=== PATIENT | female | born 1985 | race Caucasian/White ===

== ENCOUNTER 2016-11-20 14:22 | Emergency (ER) | payer OTHER ==
[~2016-11-20] VITALS: Ht 170.2 cm; Wt 70.6 kg
[~2016-11-20 14:22] MED LIST: CLON1TAB3 PO; METR0.754 PV; VALA1TAB31 PO; VILA1TAB PO
[2016-11-20 14:30] VITALS: TEMP 36.7; Ht 170.2 cm; Wt 70.6 kg
[2016-11-20] MEDS ORDERED: LORAZEPAM 2 MG/ML 1 ML VIAL IV STA (15:42)
[2016-11-20] MEDS ORDERED: ONDANSETRON INJ 2 MG/ML 2 ML VIAL IV STA (15:42)
[2016-11-20] MEDS ORDERED: SODIUM CHLORIDE 0.9% 1000ML 1,000 ML IV STA (15:42)
[2016-11-20] MEDS ORDERED: KETOROLAC TROMETHAMINE 30 MG/ML VIAL IV STA (15:42)
[2016-11-20] MEDS ORDERED: SULF800T23 PO (15:58)
[2016-11-20 16:14] LABS: BASO % 0.4 %; BASO ABS # 0.01 K/uL (0-0.2); COMPLETE YES; EOS % 3.2 %; LYMPH % 31.4 %; LYMPH ABS # 0.88 K/uL (1.2-3.4); MEAN CORPUSCULAR HGB CONC 33.7 g/dl (32-36); MEAN PLATELET VOLUME 9.7 fL (7.4-10.4); MONO % 10.4 %; NEUT % 54.6 %; PLATELET COUNT 225 K/uL (130-400); RED BLOOD COUNT 4.42 M/uL (4.2-5.4)
[2016-11-20 16:21] LABS: URINE APPEARANCE TURBID (CLEAR); URINE COLOR ORANGE; URINE EPITHELIAL CELL AUTO >30 /lpf (0-5); URINE NITRITE NEG (NEG); URINE PH >= 9.0 (4.5-7.5); URINE SPECIFIC GRAVITY 1.028 (1.000-1.030); UROBILINOGEN NEG (NEG); ZZUR CULT IF INDIC CLEAN CATCH YES
[2016-11-20 16:32] LABS: MANUAL MICROSCOPIC REQUIRED? NO; REVIEW REQ? YES; SULFASALICYLIC ACID POS (NEG); URINE BILIRUBIN 1+ (NEG)
[2016-11-20 16:42] LABS: BUN/CREATININE RATIO 8.1 (10-20); CREATININE 1.2 mg/dl (0.60-1.20); POTASSIUM 3.4 mmol/L (3.5-5.1)
[2016-11-20 16:50] LABS: PREG INTERNAL NEGATIVE QC NEG CLEAR BACKGROUND; PREG INTERNAL POSITIVE QC POS CONTROL LINE
[2016-11-20] MEDS ORDERED: OPTIRAY 320 IV PRN (18:00)
--- NOTE | 2016-11-20 19:41 | DIAGNOSTIC IMAGING REPORT ---
CT OF THE ABDOMEN AND PELVIS WITH CONTRAST CLINICAL HISTORY: Lower abdominal pain, nausea, vomiting and diarrhea. COMPARISON STUDY: CT of the abdomen and pelvis December 27, 2015. TECHNIQUE: Following IV administration of 118 mL of Optiray-320, axial images of the abdomen and pelvis were obtained from the lung bases to the proximal femurs. Images were reviewed in the axial, sagittal, and coronal planes. IV contrast was administered without complication. Oral contrast was administered. CT DOSE: 466.18 mGycm FINDINGS: Lung bases are clear. The liver, spleen, adrenal glands, kidneys and pancreas are normal. There is no hydronephrosis. There is no biliary or pancreatic ductal dilatation. The appendix is normal. An intrauterine device is appropriately positioned. The ovaries are not enlarged. Caliber and wall thickness of small and large bowel are normal. IMPRESSION: 1. No acute process within the abdomen or pelvis. Normal appendix. 2. Appropriately positioned intrauterine device. Electronically signed by: Hudson Castelan M.D. 11/20/2016 7:40 PM Dictated Date/Time: 11/20/2016 7:37 PM
[2016-11-20] MEDS ORDERED: CIPROFLOXACIN 500 MG TAB PO STA (19:52)
[2016-11-20] MEDS ORDERED: ONDANSETRON HOME PACK 4MG OD TAB PO ONE (20:00)
[2016-11-20] MEDS ORDERED: ONDA4TAB10 SL (20:01)
[2016-11-20] MEDS ORDERED: CIPR1TAB10 PO (20:01)
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
[2016-11-20 20:10] VITALS: BP 107/75; PULSE 85; O2SAT 97
== END 2016-11-20 20:14 | disposition home or self-care (01) ==
LOC: C.EDB 14:24
DX: N39.0 Urinary tract infection, site not specified (principal); R10.30 Lower abdominal pain, unspecified; R11.10 Vomiting, unspecified; R19.7 Diarrhea, unspecified; Z87.891 Personal history of nicotine dependence

== ENCOUNTER 2017-01-22 15:50 | Emergency (ER) | payer OTHER ==
[~2017-01-22] VITALS: Ht 170.2 cm; Wt 70.5 kg
[~2017-01-22 15:50] MED LIST changes: -METR0.754 PV; +ONDA4TAB10 SL; +SULF800T23 PO
[2017-01-22 15:55] VITALS: TEMP 36.7; Ht 170.2 cm; Wt 70.5 kg
[2017-01-22 17:54] LABS: URINE APPEARANCE CLEAR (CLEAR); URINE BILIRUBIN NEG (NEG); URINE COLOR YELLOW; URINE EPITHELIAL CELL AUTO >30 /lpf (0-5); URINE NITRITE NEG (NEG); URINE PH 6.5 (4.5-7.5); URINE SPECIFIC GRAVITY 1.019 (1.000-1.030); UROBILINOGEN NEG (NEG); ZZUR CULT IF INDIC CLEAN CATCH NO
[2017-01-22 17:55] LABS: MANUAL MICROSCOPIC REQUIRED? NO; REVIEW REQ? NO
[2017-01-22 18:08] LABS: BASO % 0.3 %; BASO ABS # 0.01 K/uL (0-0.2); COMPLETE YES; EOS % 1.9 %; HEMATOCRIT 38.4 % (37-47); LYMPH % 26.5 %; LYMPH ABS # 0.95 K/uL (1.2-3.4); MEAN CELL VOLUME 91.2 fL (80-100); MEAN CORPUSCULAR HEMOGLOBIN 29.2 pg (25-34); MEAN PLATELET VOLUME 9.6 fL (7.4-10.4); MONO % 12.3 %; PLATELET COUNT 180 K/uL (130-400); RED BLOOD COUNT 4.21 M/uL (4.2-5.4); WHITE BLOOD COUNT 3.59 K/uL (4.8-10.8)
[2017-01-22 18:30] LABS: BUN/CREATININE RATIO 10.1 (10-20); CALCIUM 8.7 mg/dl (8.5-10.1); CREATININE 0.9 mg/dl (0.60-1.20); POTASSIUM 3.8 mmol/L (3.5-5.1)
[2017-01-22] MEDS ORDERED: CLON1TAB3 PO (19:17)
--- NOTE | 2017-01-22 19:18 | EMERGENCY ROOM VISIT NOTE ---
History Report prepared by Javon: Ashish Henderson Under the Supervision of: Dr. Jose Maria Randolph D.O. First contact with patient: 16:55 Chief Complaint: ANXIETY Stated Complaint: SEVERE NONSTOPPING PANIC/ANXIETY,BLADDER PAIN History of Present Illness The patient is a 31 year old female who presents to the Emergency Room with complaints of intermittent anxiety attacks beginning one week ago. She rates her current discomfort a 5/10 in severity. The patient states that she is running low on her medication and cannot see her psychiatrist until . She reports that she is taking Klonopin and Vibram. The patient states that she takes 2mg of Klonopin when needed and took 1mg this morning. 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 She reports that she does not want to have an episode at work. The patient notes that this has not happened since she was 19, and she cannot stop crying. She states that she has been sexually active and wants to be checked for an STD. The patient notes that she is in pain and has been bleeding for the past 7 days. She reports that she has Murina and has not scheduled an appointment with her spreader operator yet. The patient denies having suicidal and homicidal intensions. Source of History: patient Onset: week ago Position: other (global) Symptom Intensity: 5/10 Quality: other (anxiety attack) Timing: intermittent Note: Patient denies suicidal and homicidal intensions. Review of Systems See HPI for pertinent positives & negatives. A total of 10 systems reviewed and were otherwise negative. Past Medical & Surgical Medical Problems: (1) Concussion (2) Legally induced Family History Diabetes mellitus FHx: cancer FHx: gallbladder disease Seizures Social History Smoking Status: Current Some Day Smoker Alcohol Use: occasionally Drug Use: none Marital Status: single Housing Status: lives with family Occupation Status: employed Current/Historical Medications Scheduled Clonazepam (Klonopin), 1 MG PO BID Ondasetron Odt (Zofran Odt), 4 MG SL Q6H Vilazodone Hcl (Viibryd), 10 MG PO DAILY Scheduled PRN Clonazepam (Klonopin), 1 MG PO BID PRN for Anxiety Valacyclovir Hcl (Valtrex), 1 GM PO DIRECTED PRN for HERPES FLARE Allergies Coded Allergies: Alprazolam (Unverified Allergy, Unknown, UNKNOWN, 01/22/17) Metronidazole (Unverified Allergy, Unknown, nauseated, 01/22/17) Amoxicillin (Unverified Adverse Reaction, Unknown, VOMITING, 01/22/17) Clavulanic Acid (Unverified Adverse Reaction, Unknown, VOMITING, 01/22/17) Uncoded Allergies: UNKNOWN ANTIBIOTIC (Allergy, Severe, GI UPSET, 12/27/15) SAYS SHE THINKS IT IS SPELLED CEPEROLE Physical Exam Vital Signs Date Time Temp Pulse Resp B/P (MAP) Pulse Ox O2 Delivery O2 Flow Rate FiO2 01/22/17 18:51 98 18 113/88 98 Room Air 01/22/17 15:55 36.7 104 20 133/97 98 Room Air Physical Exam CONSTITUTIONAL/VITAL SIGNS: Reviewed / noted above. GENERAL: Non-toxic in appearance. INTEGUMENTARY: Warm, dry, and [place]. HEAD: Normocephalic. EYES: without scleral icterus or trauma. ENT/OROPHARYNX: clear and moist. LYMPHADENOPATHY/NECK: Is supple without lymphadenopathy or meningismus. RESPIRATORY: Lungs clear and equal. CARDIOVASCULAR: Regular rate and rhythm. GI/ABDOMEN: Soft and nontender. No organomegaly or pulsatile mass. No rebound or guarding. Normal bowel sounds. EXTREMITIES: Warm and well perfused. BACK: No CVA tenderness. NEUROLOGICAL: Intact without focal deficits. PSYCHIATRIC: normal affect, tearful and slightly anxious no suicidal intensions and no homicidal intensions. MUSCULOSKELETAL: Normally developed with good muscle tone. Medical Decision & Procedures Laboratory Results 01/22/17 18:00 Red Blood Count 4.21, Mean Corpuscular Volume 91.2, Mean Corpuscular Hemoglobin 29.2, Mean Corpuscular Hemoglobin Concent 32.0, Mean Platelet Volume 9.6, Neutrophils (%) (Auto) 59.0, Lymphocytes (%) (Auto) 26.5, Monocytes (%) (Auto) 12.3, Eosinophils (%) (Auto) 1.9, Basophils (%) (Auto) 0.3, Neutrophils # (Auto ) 2.12, Lymphocytes # (Auto) 0.95, Monocytes # (Auto) 0.44, Eosinophils # (Auto ) 0.07, Basophils # (Auto) 0.01 01/22/17 18:00 Test 01/22/17 16:30 01/22/17 18:00 Urine Color YELLOW Urine Appearance CLEAR (CLEAR) Urine pH 6.5 (4.5-7.5) Urine Specific [place] 1.019 (1.000-1.030) Urine Protein NEG (NEG) Urine Glucose (UA) NEG (NEG) Urine Ketones NEG (NEG) Urine Occult Blood NEG (NEG) Urine Nitrite NEG (NEG) Urine Bilirubin NEG (NEG) Urine Urobilinogen NEG (NEG) Urine Leukocyte Esterase NEG (NEG) Urine WBC (Auto) 1-5 /hpf (0-5) Urine RBC (Auto) 5-10 /hpf (0-4) Urine Hyaline Casts (Auto) 1-5 /lpf (0-5) Urine Epithelial Cells (Auto) >30 /lpf (0-5) Urine Bacteria (Auto) NEG (NEG) Urine Test NEG (NEG) White Blood Count 3.59 K/uL (4.8-10.8) Red Blood Count 4.21 M/uL (4.2-5.4) Hemoglobin 12.3 g/dL (12.0-16.0) Hematocrit 38.4 % (37-47) Mean Corpuscular Volume 91.2 fL (80-100) Mean Corpuscular Hemoglobin 29.2 pg (25-34) Mean Corpuscular Hemoglobin Concent 32.0 g/dl (32-36) Platelet Count 180 K/uL (130-400) Mean Platelet Volume 9.6 fL (7.4-10.4) Neutrophils (%) (Auto) 59.0 % Lymphocytes (%) (Auto) 26.5 % Monocytes (%) (Auto) 12.3 % Eosinophils (%) (Auto) 1.9 % Basophils (%) (Auto) 0.3 % Neutrophils # (Auto) 2.12 K/uL (1.4-6.5) Lymphocytes # (Auto) 0.95 K/uL (1.2-3.4) Monocytes # (Auto) 0.44 K/uL (0.11-0.59) Eosinophils # (Auto) 0.07 K/uL (0-0.5) Basophils # (Auto) 0.01 K/uL (0-0.2) RDW Standard Deviation 50.3 fL (36.4-46.3) RDW Coefficient of Variation 14.9 % (11.5-14.5) Immature Granulocyte % (Auto) 0.0 % Immature Granulocyte # (Auto) 0.00 K/uL (0.00-0.02) Anion Gap 7.0 mmol/L (3-11) Est Creatinine Clear Calc Drug Dose 88.1 ml/min Estimated GFR () 98.7 Estimated GFR (Non- 85.2 BUN/Creatinine Ratio 10.1 (10-20) Calcium Level 8.7 mg/dl (8.5-10.1) Total Bilirubin 0.9 mg/dl (0.2-1) Direct Bilirubin 0.3 mg/dl (0-0.2) Aspartate Amino Transf (AST/SGOT) 49 U/L (15-37) Alanine Aminotransferase (ALT/SGPT) 69 U/L (12-78) Alkaline Phosphatase 50 U/L (45-117) Total Protein 7.2 gm/dl (6.4-8.2) Albumin 3.7 gm/dl (3.4-5.0) Lipase 168 U/L (73-393) Laboratory results as stated above per my review. ED Course 1654: Previous medical records were reviewed. The patient was evaluated in room A08. A complete history and physical examination was performed. 192: On reevaluation, the patient is resting and in no distress. I discussed the results and findings with the patient. She verbalized agreement of the treatment plan. She was discharged home. Medical Decision differential includes toxic ingestions, self-mutilation, suicidal ideation, suicide attempt, depression. Medication Reconciliation: I attest that I have personally reviewed the patient' s current medication list. Blood pressure Screening: Patient was found to have normal blood pressure on screening and does not require follow-up. This is a 31-year-old female who presents to the ED with a chief complaint of anxiety. The patient also reported some mild abdominal discomfort and some vaginal bleeding related to the Mirena. The patient states that she has been bleeding for about 8 days. She has been experiencing anxiety for several days. She states that she has run out of her Klonopin. She takes 1 mg twice a day. She believes that her mother took some of her medication. The patient has follow-up with her psychiatrist in 3 days. The patient initially wanted a pelvic exam because she was concerned that her boyfriend might have an STD but later declined this and will follow-up with her spreader operator. The patient's exam reveals that the patient is somewhat tearful and anxious. She denies being suicidal or homicidal. Blood work including CBC, complete metabolic panel , lipase were unremarkable. She is not and her urine did not show infection. The patient was told results the test per cheese felt to be stable for discharge and outpatient follow up. She was given a prescription for Klonopin for the next couple of days. Impression Primary Impression: Acute anxiety Additional Impression: Abdominal pain Scribe Attestation The scribe's documentation has been prepared under my direction and personally reviewed by me in its entirety. I confirm that the note above accurately reflects all work, treatment, procedures, and medical decision making performed by me. Departure Information Dispostion Home / Self-Care Prescriptions Clonazepam (Klonopin) 1 Mg Tab 1 MG PO BID for 3 Days, #6 TAB Prov: Jose Maria Randolph D.O. 01/22/17 Referrals No Doctor, Assigned (PCP) Patient Instructions Anxiety Disorder, My [facility] Additional Instructions Klonopin as prescribed. Follow-up with your psychiatrist as scheduled this . Follow-up with your spreader operator. Call tomorrow for an appointment. Follow-up with your doctor for further care and evaluation in 1-2 days. Return to the emergency department for worsening or new symptoms or any concerns. You have been examined and treated today on an emergency basis only. This is not a substitute for, or an effort to provide, complete comprehensive medical care. It is impossible to recognize and treat all injuries or illnesses in a single emergency department visit. It is therefore important that you follow up closely with your doctor. Call as soon as possible for an appointment. Problem Qualifiers
[2017-01-22 19:30] VITALS: BP 122/94; PULSE 92; O2SAT 100
== END 2017-01-22 19:30 | disposition home or self-care (01) ==
LOC: C.EDB 15:51 → C.EDA 19:30
DX: F41.9 Anxiety disorder, unspecified (principal); R10.9 Unspecified abdominal pain; F17.210 Nicotine dependence, cigarettes, uncomplicated; Z79.899 Other long term (current) drug therapy

== ENCOUNTER 2017-02-12 15:50 | Emergency (ER) | payer OTHER ==
[~2017-02-12] VITALS: Ht 170.2 cm; Wt 68.2 kg
[~2017-02-12 15:50] MED LIST changes: -SULF800T23 PO
[2017-02-12 15:52] VITALS: TEMP 36.7; Ht 170.2 cm; Wt 68.2 kg
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
[2017-02-12] MEDS ORDERED: AZIT500T26 PO (17:39)
[2017-02-12] MEDS ORDERED: HYDR-5688 PO (17:50)
[2017-02-12] MEDS ORDERED: CYCL10TA6 PO (17:50)
[2017-02-12] MEDS ORDERED: IBUPROFEN 600 MG TAB ONE (18:18)
[2017-02-12 18:22] VITALS: BP 131/88; PULSE 97; O2SAT 99
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
== END 2017-02-12 18:20 | disposition home or self-care (01) ==
LOC: C.EDB 15:51 → C.EDA 18:20
DX: R51 Headache (principal); M54.2 Cervicalgia; V44.6XXA Car passenger injured in collision with heavy transport vehicle or bus in traffic accident, initial encounter; F17.200 Nicotine dependence, unspecified, uncomplicated; Z87.820 Personal history of traumatic brain injury; Z83.3 Family history of diabetes mellitus; Z82.0 Family history of epilepsy and other diseases of the nervous system

== ENCOUNTER 2020-06-13 01:11 | Observation (INO) ==
[2020-06-13 01:47] LABS: Appearance Urine Clear (Clear); Bilirubin Urine Negative (Negative); Blood Urine Negative (Negative); Color Urine Yellow; Glucose Urine UA Negative (Negative); Ketones Urine Negative (Negative); Leukocyte Esterase Urine Negative (Negative); Nitrite Urine Negative (Negative); Protein Urine Negative (Negative); Specific Gravity Urine 1.007 (1.000-1.030); Urobilinogen Urine Negative (Negative)
[2020-06-13 02:07] LABS: Amphetamines+Metham, Urine Neg (Neg); Barbiturates, Urine Neg (Neg); Benzodiazepine, Urine Neg (Neg); Cocaine, Urine Neg (Neg); MDMA (Ecstacy), Urine Neg (Neg); Methadone, Urine Neg (Neg); Opiate, Urine Neg (Neg); Phencyclidine, Urine Neg (Neg)
[2020-06-13 02:14] LABS: Hematocrit (blood only) 38.2 % (37-47); Hemoglobin 12.3 g/dL (12.0-16.0); Mean Corpuscular Hemoglobin 29.9 pg (25-34); Mean Corpuscular Hgb Conc 32.2 g/dL (32-36); Mean Corpuscular Volume 92.9 fL (80-100); Mean Platelet Volume 9.1 fL (7.4-10.4); Platelet Count 281 K/uL (130-400); RDW Coefficient of Variation 16.5 % (11.5-14.5); RDW Standard Deviation 56.5 fL (36.4-46.3); Red Blood Count 4.11 M/uL (4.2-5.4); White Blood Count 6.73 K/uL (4.8-10.8)
[2020-06-13 02:37] LABS: Pregnancy Test, Serum Negative (Negative)
[2020-06-13 02:41] LABS: Alanine Aminotransferase 21 U/L (12-78); Aspartate Aminotransferase 26 U/L (15-37); Blood Urea Nitrogen 8 mg/dl (7-18); Calcium 8.3 mg/dl (8.5-10.1); Carbon Dioxide 29 mmol/L (21-32); Chloride 110 mmol/L (98-107); Est GFR (African American) 94.2; Est GFR (Non-African American) 81.2; Glucose 67 mg/dl (70-99); Potassium 3.3 mmol/L (3.5-5.1); Sodium 143 mmol/L (136-145)
[2020-06-13 02:44] LABS: Albumin Globulin Ratio 0.9 (0.9-2); Alkaline Phosphatase 58 U/L (45-117); Bilirubin,Total 0.3 mg/dl (0.2-1); Globulin 4.5 gm/dl (2.5-4.0); Total Protein 8.5 gm/dl (6.4-8.2)
[2020-06-13 02:45] LABS: Basophils # (auto) 0.01 K/uL (0-0.2); Basophils % (auto) 0.1 %; Eosinophils # (auto) 0.15 K/uL (0-0.5); Eosinophils % (auto) 2.2 %; Immature Granulocytes # (auto) 0.01 K/uL (0.00-0.02); Immature Granulocytes % (auto) 0.1 %; Lymphocytes % (auto) 56.5 %; Monocytes % (auto) 5.9 %; Neutrophils # (auto) 2.36 K/uL (1.4-6.5); Neutrophils % (auto) 35.2 %
[2020-06-13] MEDS ORDERED: THIAMINE HCL 100 MG in SYRINGE 9 ML IV STA (03:03)
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
[2020-06-13] MEDS ORDERED: ACETAMINOPHEN 325 MG TAB PO PRN (04:27)
[2020-06-13] MEDS ORDERED: PROMETHAZINE HCL 6.25 MG in SODIUM CHLORIDE 0.9% 50 ML IV PRN (04:27)
[2020-06-13] MEDS ORDERED: LORazepam 0.25 MG/0.5 ML VIAL IV PRN (04:27)
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
[2020-06-13 04:51] LABS: Magnesium 2.5 mg/dl (1.8-2.4)
[2020-06-13] MEDS ORDERED: MULTI-VITAMIN INFUSION 10 ML, THIAMINE HCL 100 MG, FOLIC ACID 1 MG, POTASSIUM CHLORIDE ... IV ONE (05:00)
[2020-06-13] MEDS ORDERED: CALCIUM GLUCONATE 10% 1,000 MG in SODIUM CHLORIDE 0.9% 50 ML IV STA (05:56)
--- NOTE | 2020-06-13 08:39 | XRay Report ---
PRONE PORTABLE AP CHEST RADIOGRAPH CLINICAL HISTORY: low o2 COMPARISON STUDY: Chest radiograph June 19, 2018. FINDINGS: Evaluation is suboptimal given difficulty positioning. No pneumothorax or pleural effusion is noted. Patient is rotated. Allowing for patient rotation, cardiac size is likely normal. There is no lobar consolidation. There is no evidence for pulmonary edema. IMPRESSION: Rotated study. No acute findings identified. ACT 112: Negative or not required by law. Electronically signed by: Hudson Castelan M.D. 06/13/2020 8:38 AM
[2020-06-13] MEDS ORDERED: ENOXAPARIN INJ 30 MG/0.3 ML SYR SQ SCH (09:00)
[2020-06-13] MEDS ORDERED: LACTATED RINGER'S 1,000 ML IV SCH (10:00)
[2020-06-13] MEDS ORDERED: SODIUM CHLORIDE 0.9% 500 ML IV ONE (13:47)
[2020-06-13] MEDS ORDERED: clonazePAM 1 MG TAB PO PRN (14:00)
[2020-06-13] MEDS ORDERED: GABAPENTIN 800MG ALCOHOL WITHDRAWAL LOAD PO STA (14:01)
[2020-06-13] MEDS ORDERED: LORazepam 1 MG TAB PO PRN (14:01)
--- NOTE | 2020-06-13 14:08 | Hospitalist Progress Note ---
Date of Service June 13, 2020 Assessment & Plan (1) Alcohol overdose: Alcohol Intoxication Alcohol level:542 Tox screen reviewed CXR:Rotated study. No acute findings identified. Started on Gabapentin protocol Continue Thiamine, folic acid Monitor for withdrawal Follows with Psychotherapy as outpatient as per patient Cotton Agent to quit Received IV fluids Hypokalemia Replete electrolytes as needed Monitor Anxiety disorder, Eating disorder as per records On Clonazepam, Prozac Ongoing tobacco abuse Cotton Agent to quit DVT Px: Lovenox SQ Code Status Full code Admission and Anticipated Discharge Date Admission Date: June 13, 2020 Subjective Patient is seen and examined at bedside Drowsy this morning but more alert later Reports having withdrawal symptoms from alcohol use in the past Currently not interested in getting detox Denies chest pain, SOB, dizziness, abd pain Offers no other complaints Review of Systems Review of Systems: All systems reviewed & are unremarkable except as noted in HPI & below Physical Exam Physical Exam: Physical Exam: Vitals signs as noted above General Appearance:Moderately built and nourished, no apparent distress Head: normocephalic, Atraumatic Eyes: normal inspection, EOMI Neck: supple, Trachea midline Respiratory/Chest: Normal breath sounds, CTA Cardiovascular: S1, S2, No murmur Abdomen/GI:Soft, Non tender, Bowel sounds present Extremities/Musculoskelatal:normal inspection, no edema Neurologic/Psych:AAOX3, grossly no focal neurological deficits Skin: normal color, warm Results & Data Results & Data ([facility]) Vital Signs (Past 12 Hours) Vital Signs Temp Pulse Pulse Resp BP BP BP 06/13/20 11:52 35.9 C L 92 H 18 96/66 L 06/13/20 08:15 35.7 C L 92 H 18 91/66 L 06/13/20 07:17 81 06/13/20 04:35 36.8 C 101 H 16 125/89 06/13/20 04:17 36.4 C L 101 H 20 125/89 06/13/20 04:12 117 H 06/13/20 03:57 104 H 25 H 94/51 L 06/13/20 03:30 77 15 97/63 L 06/13/20 03:00 74 15 90/56 L 06/13/20 02:30 83 19 102/68 Pulse Ox 06/13/20 11:52 97 06/13/20 08:15 98 06/13/20 07:17 06/13/20 04:35 97 06/13/20 04:17 97 06/13/20 04:12 06/13/20 03:57 93 06/13/20 03:30 96 06/13/20 03:00 96 06/13/20 02:30 96 Laboratory Results Short CBC 06/13/20 Range/Units 01:44 WBC 6.73 (4.8-10.8) K/uL Hgb 12.3 (12.0-16.0) g/dL Hct 38.2 (37-47) % Plt Count 281 (130-400) K/uL BMP 06/13/20 01:44 Sodium 143 Potassium 3.3 L Chloride 110 H Carbon Dioxide 29 BUN 8 Creatinine 0.92 Glucose 67 L Calcium 8.3 L Liver Function 06/13/20 Range/Units 01:44 Total Bilirubin 0.3 (0.2-1) mg/dl AST 26 (15-37) U/L ALT 21 (12-78) U/L Alkaline Phosphatase 58 (45-117) U/L Albumin 4.0 (3.4-5.0) gm/dl Urine 06/13/20 Range/Units 01:31 Urine Color Yellow Urine Appearance Clear (Clear) Urine pH 7.0 (4.5-7.5) Ur Specific [place] 1.007 (1.000-1.030) Urine Protein Negative (Negative) Urine Glucose (UA) Negative (Negative)
[2020-06-13] MEDS ORDERED: FLUoxetine HCL 10 MG CAP PO SCH (14:15)
[2020-06-13] MEDS ORDERED: GABAPENTIN 400 MG CAP PO ONE (14:15)
--- NOTE | 2020-06-13 15:29 | Discharge Summary ---
Date of Service June 13, 2020 Admission HPI Per Admitting Provider History obtained from ER provider and records. Unable to obtain history from patient secondary to intoxicated state. Medical history significant for anxiety disorder, eating disorder as per records, ongoing tobacco abuse. Patient was drinking [place] when patient was later noted to have decreased responsiveness. EMS called. Patient BSG noted to be 60s. Dextrose ampule administered. BSG recheck noted to be 116. Clonazepam tablet noted in patient's purse. Patient brought to the ER for evaluation. Medical History as above Surgical History : D&C Family History : Breast cancer, diabetes, heart disease Personal/Social history : Half pack daily, alcohol intake, phlebotomies as per records Admission Exam Per Admitting Provider Physical Exam Physical Exam: GENERAL: Intoxicated, prone position on the stretcher, no respiratory distress SKIN: Normal color, warm HEENT: [place] palpebral conjunctivae, no ptosis, dry buccal mucosa NECK : Supple, no tenderness CHEST : Decreased breath sounds, no tenderness HEART : RRR, no obvious murmurs ABDOMEN: Could not be performed at time of exam due to patient's prone position EXTREMITIES : No LE swelling/tenderness, no other conspicuous deformities noted NEUROLOGIC : Intoxicated, some response to pain Principal Diagnosis Alcohol Intoxication Hypokalemia Anxiety disorder Discharge Data Allergies Allergy/AdvReac Type Severity Reaction Status Date / Time ciprofloxacin [From Cipro] Allergy Intermediate Photosensit Verified 03/30/20 20:12 ivity alprazolam AdvReac Intermediate Panic Verified 03/30/20 20:12 attacks became worse amoxicillin AdvReac Intermediate VOMITING Verified 03/30/20 20:12 clavulanic acid AdvReac Intermediate VOMITING Verified 03/30/20 20:12 metronidazole AdvReac Intermediate Nausea Verified 03/30/20 20:12 sulfamethoxazole AdvReac Intermediate Nausea Verified 03/30/20 20:12 [From Bactrim] trimethoprim [From Bactrim] AdvReac Intermediate Nausea Verified 03/30/20 20:12 Consultations 06/13/20 02:49 ED Decision to Admit Stat 06/13/20 04:27 Consult Case Management - Discharge Planning Routine Procedures Performed CXR:Rotated study. No acute findings identified. Hospital Course (1) Alcohol overdose: Alcohol Intoxication Alcohol level:542 Tox screen reviewed CXR:Rotated study. No acute findings identified. 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 Patient understands but still signed out AMA. Advised to follow up with PCP and seek immediate medical attention if your symptoms reoccur or worsen or goes into withdrawal. Total Time Total Time Spent Total Time Spent (In Minutes): 38 minutes Total Time Includes: Examination of the Patient, Discharge Planning, Medication Reconciliation, Communication With Other Providers and Other Discharge Plan Discharge Items Patient Disposition: Against Medical Advice Reason For Visit: ALCOHOL INTOXICATION Discharge Diagnosis: Alcohol Intoxication Hypokalemia Anxiety disorder Activity: Per Instructions section Exercise/Sports: Gradually increase as tolerated Non-emergency contact: Primary Care Provider Call non-emergency contact if: you have any medication questions, your symptoms worsen, your pain is not controlled, your pain is worsening, your pain is unusual for you, your pain is concerning for you and you have a fever Follow-up/Referrals: Latosha Lopez, [Primary Care Provider] - Diet: Regular Addtl Attending Provider Instructions: Follow up with your Primary Care Physician in 1 week Seek immediate medical attention if your symptoms reoccur or worsen Pending Studies at Discharge: No Stand-Alone Forms: [facility] [id number], Smoking Cessation Medications and DC Order Prescriptions: Continued clonazepam 1 mg Tablet 1 mg PO TID PRN (Reason: Anxiety) RF: 0 buspirone 5 mg tablet 5 mg PO BID RF: 0 fluoxetine [Prozac] 10 mg capsule 10 mg PO DAILY RF: 0 ondansetron 4 mg tablet,disintegrating 4 mg PO Q6H PRN (Reason: Nausea) RF: 0 Discharge Orders: Left Against Medical Advice (Routine); Ordered 06/13/20 Ordered By: Frank Olivares Admission Data Admit Date/Time: 06/13/20 03:22 Attending Provider: Frank Olivares Admit Provider: Les Chinchilla Primary Care Provider: Latosha Lopez Other Providers: Les Chinchilla
[2020-06-13] MEDS ORDERED: GABAPENTIN 400 MG CAP PO SCH (20:15)
[2020-06-14] MEDS ORDERED: THIAMINE HCL 100 MG TAB PO SCH (09:00)
[2020-06-14] MEDS ORDERED: FOLIC ACID 1 MG TAB PO SCH (09:00)
[2020-06-14] MEDS ORDERED: MULTIVITAMIN TAB PO SCH (09:00)
[2020-06-14] MEDS ORDERED: GABAPENTIN 400 MG CAP PO SCH (10:15)
[2020-06-15] MEDS ORDERED: GABAPENTIN 400 MG CAP PO SCH (14:15)
[2020-06-17] MEDS ORDERED: GABAPENTIN 400 MG CAP PO SCH (02:15)
== END 2020-06-13 16:22 | disposition left against medical advice (07) | DRG 894 ==
LOC: ED 01:11 → 2W 03:22 → SUATTDRO 03:22 → INTOOBSV 03:22 → 2W 04:15

== ENCOUNTER 2022-05-23 20:08 | Inpatient (IN) ==
[2022-05-23] MEDS ORDERED: SODIUM CHLORIDE 0.9% 1000ML 1,000 ML IV ONE (20:20)
[2022-05-23 20:38] LABS: Basophils # (auto) 0.03 K/uL (0-0.2); Basophils % (auto) 0.6 %; Eosinophils # (auto) 0.03 K/uL (0-0.50); Eosinophils % (auto) 0.6 %; Hematocrit (blood only) 36.5 % (34.1-44.9); Hemoglobin 11.4 g/dl (12.0-16.0); Immature Granulocytes # (auto) 0.02 K/uL (0.00-0.02); Immature Granulocytes % (auto) 0.4 %; Lymphocytes # (auto) 1.62 K/uL (1.2-3.4); Lymphocytes % (auto) 31.9 %; Mean Corpuscular Hemoglobin 25.4 pg (25.0-34.0); Mean Corpuscular Hgb Conc 31.2 g/dL (32.0-36.0); Mean Corpuscular Volume 81.3 fL (80.0-100.0); Mean Platelet Volume 9.5 fL (9.4-12.3); Monocytes # (auto) 0.51 K/uL (0.24-0.82); Neutrophils # (auto) 2.87 K/uL (1.4-6.5); Neutrophils % (auto) 56.5 %; Platelet Count 277 K/uL (130-400); RDW Coefficient of Variation 18.4 % (11.5-14.5); RDW Standard Deviation 54.3 fL (36.4-46.3); Red Blood Count 4.49 M/uL (3.93-5.22); White Blood Count 5.08 K/ul (4.8-10.8)
[2022-05-23 20:49] LABS: iSTAT Arterial Blood Gas HCO3 22 meg/L (19-24); iSTAT Arterial Blood Gas pCO2 44 mmHg (35-46); iSTAT Arterial Blood Gas pH 7.31 (7.35-7.45); iSTAT Arterial Blood Gas pO2 66 mmHg (80-95); iSTAT Carbon Dioxide 23 mmol/L (24-31)
[2022-05-23 20:50] LABS: INR 0.9 (0.9-1.1); Prothrombin Time 9.6 Seconds (9.0-12.0)
[2022-05-23 20:57] LABS: Albumin Globulin Ratio 1.6 (0.9-2); Albumin Level 4.3 gm/dl (3.4-5.0); BUN Creatinine Ratio 12.9 (10-20); Bilirubin,Total 0.3 mg/dl (0.2-1.0); Calcium 8.1 mg/dl (8.5-10.1); Creatinine Clr Calc Pharmacy 91.5 ml/min; Est GFR (African American) 91.6 ml/min; Est GFR (Non-African American) 79.1 ml/min; Globulin 2.7 gm/dl (2.5-4.0); Magnesium 1.9 mg/dl (1.7-2.4); Potassium 3.8 mmol/L (3.5-5.1)
[2022-05-23 21:03] LABS: Troponin I High Sensitivity 6.1 pg/ml (0-14)
[2022-05-23] MEDS ORDERED: SODIUM CHLORIDE 0.9% 1000ML 1,000 ML IV SCH (21:15)
--- NOTE | 2022-05-23 21:28 | CT Scan Report ---
CT OF THE HEAD WITHOUT CONTRAST CLINICAL HISTORY: Altered mental status. COMPARISON STUDY: Head CT October 08, 2021. CT DOSE: 537.48 mGy.cm TECHNIQUE: Helical axial images of the head were obtained without IV contrast. Automated exposure con trol was utilized for the study. A dose lowering technique was utilized adhering to the principles o f ALARA. FINDINGS: This exam is mildly compromised by motion artifact. A linear density projecting over the le ft frontal lobe on axial image 15 of 28 is artifactual. No acute intracranial hemorrhage, midline mariaelena ft or mass effect is present. Ventricular system is normal. Basal cisterns are patent. There are no e xtra-axial collections. There are no findings to suggest acute dural sinus thrombosis or acute territ orial infarct. No calvarial fracture is identified. IMPRESSION: 1. No acute intracranial findings. Exam mildly compromised by artifact. 2. No calvarial fracture. ACT 112: Negative or not required by law. Electronically signed by: Hudson Castelan M.D. 05/23/2022 9:25 PM
[2022-05-23 21:31] LABS: Appearance Urine Clear (Clear); Bilirubin Urine Negative (Negative); Blood Urine Negative (Negative); Color Urine Yellow; Glucose Urine UA Negative (Negative); Ketones Urine Negative (Negative); Leukocyte Esterase Urine Negative (Negative); Nitrite Urine Negative (Negative); Protein Urine Negative (Negative); Specific Gravity Urine 1.007 (1.000-1.030); Urobilinogen Urine Negative (Negative); pH Urine 5.5 (4.5-7.5)
[2022-05-23 21:51] LABS: Pregnancy Test, Serum Negative (Negative)
[2022-05-23 21:51] LABS: Amphetamines+Metham, Urine Neg (Neg); Barbiturates, Urine Neg (Neg); Benzodiazepine, Urine Neg (Neg); Cocaine, Urine Neg (Neg); MDMA (Ecstacy), Urine Neg (Neg); Methadone, Urine Neg (Neg); Opiate, Urine Neg (Neg); Phencyclidine, Urine Neg (Neg)
[2022-05-23] MEDS ORDERED: MULTI-VITAMIN INFUSION 10 ML, THIAMINE HCL 100 MG, FOLIC ACID 1 MG in SODIUM CHLORIDE 0... IV ONE (21:58)
--- NOTE | 2022-05-23 22:05 | Emergency Department Note ---
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 no evidence of widened QRS or prolonged QTC. Sinus tachycardia improved with IV fluid rehydration. Patient was moving all extremities and was protecting her airway. Patient rechecked multiple times in the emergency department due to concern for altered mentation. Patient ultimately found to have an alcohol level greater than 600. Patient's other drug screen, salicylates, and Tylenol were negative. Due to significant intoxication, risk of alcohol withdrawal, history of alcohol abuse, need for continued monitoring, case discussed with hospitalist for additional evaluation and management. Patient was found in bed, no evidence of trauma on exam, however low suspicion for any occult traumatic injury. I do not suspect occult infection at this time. Patient's other electrolytes and kidney status reassuring. Impression & Plan Altered mental status, Alcohol intoxication, Alcohol abuse Discharge Plan Visit Data Chief Complaint: Unresponsive ED Provider: Rachel Lo Discharge Problem: Altered mental status, Alcohol intoxication, Alcohol abuse Patient Disposition: Admitted As Inpatient Discharge Instructions Interventions: ED Discharge Assessment Last Done: 05/24/22 01:06
[2022-05-23 22:31] LABS: Acetaminophen < 3 ug/ml (10-30); Salicylate < 3.0 mg/dl (3.0-30)
[2022-05-23] MEDS ORDERED: D5W AND NSS 1,000 ML IV SCH (23:00)
[2022-05-24] MEDS ORDERED: NITROGLYCERIN SL 0.4 MG/TAB TAB SL PRN (01:33)
[2022-05-24] MEDS ORDERED: ONDANSETRON INJ 2 MG/ML 2 ML VIAL IV PRN (01:33)
--- NOTE | 2022-05-24 01:49 | History and Physical Report ---
DATE OF ADMISSION: 05/23/2022. CHIEF COMPLAINT: Alcohol intoxication. HISTORY OF PRESENT ILLNESS: A 36-year-old female with past medical history significant for alcohol intoxication, seems to be also on clonazepam as needed for anxiety,was found to have altered mental status at home. The friend with whom she is staying found the patient in the bed confused and she could not wake her up and found some alcohol in the room and also some clonazepam. EMS also found to have two different antibiotics in addition to clonazepam. As she was mildly hypoglycemia she was given dextrose prehospital. EMS tried to give Narcan with no improvement in mentation. She was brought in here. Her CT head was okay. Chest x-ray okay. The patient's alcohol level was found to be in 620 range. Saturating okay. blood pressure okay. The urinalysis fine. Otherwise, tox screen is okay. COVID is negative. At the time of my exam, the patient is opening her eyes, could tell her name, but could not answer any other questions. Could not get any history from the patient. [email or web address] is also down and could not access the records. ALLERGIES: CIPROFLOXACIN, ALPRAZOLAM, AMOXICILLIN, CLAVULANIC ACID, METRONIDAZOLE, BACTRIM. PAST MEDICAL HISTORY: Unknown. PAST SURGICAL HISTORY: Unknown. MEDICATIONS: Seems to be on Klonopin p.r.n. FAMILY HISTORY: Unknown at this time. SOCIAL HISTORY: Unknown at this time. REVIEW OF SYSTEMS: Unobtainable at this time. PHYSICAL EXAMINATION: GENERAL: The patient is alert and awake, not in acute distress. VITAL SIGNS: Temperature 37, pulse 113, respiratory rate 17, blood pressure 113/65, oxygen 99% on room air. HEENT: Pupils equal, round and reactive to light. Oral mucosa dry. NECK: No neck masses seen. CARDIOVASCULAR: S1 and S2 heard. Tachycardia. No murmurs. RESPIRATORY SYSTEM: Normal AP diameter. No accessory muscle use. No wheezing. ABDOMEN: Soft, bowel sounds present, no distention. CENTRAL NERVOUS SYSTEM: Alert and awake, not obeying any commands, moving extremities. EXTREMITIES: No edema, no erythema. LABORATORY DATA: WBC 5, hemoglobin 11.4, hematocrit 36.5, platelets 277. PT 39.6, INR 0.9, pH of 7.3, pCO2 of 44, pO2 of 66, bicarbonate 22. Sodium 138, potassium 3.8, chloride 101, bicarbonate 24, BUN 12, creatinine 0.9, serum glucose 193, calcium 8.1, magnesium 1.9, total bilirubin 0.3, AST 61, ALT 39, alkaline phosphatase 45. Lipase 15. TSH 0.5. HCG qualitative negative. Urinalysis negative. Salicylate less than 3. Drug screen negative. Acetaminophen less than 3, ethyl alcohol 623. SARS-CoV-2 rapid test negative. IMAGING DATA: CT of the head, no acute findings. Chest x-ray, no acute findings. EKG: Sinus tachycardia with occasional PVCs at a rate of 116. ASSESSMENT AND PLAN: This is a 36-year-old female who presents with altered mental status, thought to be most likely from alcohol intoxication. 1. Altered mental status, most likely from alcohol intoxication: Ethyl alcohol is 623. History of alcoholic intoxication in the past. CT of the head is unremarkable. Currently, somewhat still drowsy. To monitor in the hospital. Currently, the patient is more awake. Received banana bag in the ER. Will continue with IV thiamine, IV folic acid, IV fluids. Monitor in the tele floor. Can start on alcohol withdrawal protocol when more awake if Patient continues to stay in the hospital. Will follow labs.Needs counseling. 2. Anxiety . Seems on Klonopin prn. Gave one half dose as patient more awake and asked for it as seems she takes it regularly. 2. Deep venous thrombosis prophylaxis: Sequential compression devices, Lovenox. DISPOSITION: Closely monitor in the tele floor. Expect to discharge home and follow with family doctor. Will also monitor for any alcohol withdrawal. Job ID: [id number] [facility]
[2022-05-24] MEDS ORDERED: FLUARIX QUADRIVALENT 0.5 ML SYR IM ONE (02:01)
[2022-05-24] MEDS ORDERED: clonazePAM 0.5 MG TAB PO STA (02:07)
[2022-05-24] MEDS: D5W AND NSS 1,000 ML IV SCH ×3 (02:09→17:08)
[2022-05-24] MEDS: ENOXAPARIN INJ 40 MG/0.4 ML SYR SQ SCH (06:08)
[2022-05-24 07:18] LABS: Basophils # (auto) 0.02 K/uL (0-0.2); Basophils % (auto) 0.4 %; Eosinophils # (auto) 0.09 K/uL (0-0.50); Hematocrit (blood only) 28.9 % (34.1-44.9); Hemoglobin 9.1 g/dl (12.0-16.0); Immature Granulocytes # (auto) 0.01 K/uL (0.00-0.02); Immature Granulocytes % (auto) 0.2 %; Lymphocytes # (auto) 1.87 K/uL (1.2-3.4); Lymphocytes % (auto) 41.7 %; Mean Corpuscular Hemoglobin 25.5 pg (25.0-34.0); Mean Corpuscular Hgb Conc 31.5 g/dL (32.0-36.0); Mean Platelet Volume 9.2 fL (9.4-12.3); Monocytes # (auto) 0.47 K/uL (0.24-0.82); Monocytes % (auto) 10.5 %; Neutrophils # (auto) 2.02 K/uL (1.4-6.5); Neutrophils % (auto) 45.2 %; Platelet Count 197 K/uL (130-400); RDW Coefficient of Variation 18.5 % (11.5-14.5); RDW Standard Deviation 54.9 fL (36.4-46.3); Red Blood Count 3.57 M/uL (3.93-5.22); White Blood Count 4.48 K/ul (4.8-10.8)
[2022-05-24 07:47] LABS: Albumin Level 3.4 gm/dl (3.4-5.0); BUN Creatinine Ratio 14.3 (10-20); Bilirubin Direct 0.1 mg/dl (0-0.2); Bilirubin,Total 0.4 mg/dl (0.2-1.0); Est GFR (African American) 129.2 ml/min; Est GFR (Non-African American) 111.5 ml/min; Magnesium 1.6 mg/dl (1.7-2.4); Potassium 3.7 mmol/L (3.5-5.1); Total Protein 5.6 gm/dl (6.0-8.3)
--- NOTE | 2022-05-24 08:42 | Electrocardiogram Report ---
Test Reason : Blood Pressure : / mmHG Vent. Rate : 116 BPM Atrial Rate : 116 BPM P-R Int : 148 ms QRS Dur : 074 ms QT Int : 340 ms P-R-T Axes : 070 057 054 degrees QTc Int : 472 ms Poor data quality, interpretation may be adversely affected Sinus tachycardia with occasional Premature ventricular complexes Abnormal ECG When compared with ECG of 21-SEP-2021 04:00, Premature ventricular complexes are now Present Confirmed by Isaac Kincaid ([id number]) on 05/24/2022 8:42:18 AM Referred By: REFERRED SELF Confirmed By:Shawn Kincaid
--- NOTE | 2022-05-24 09:16 | XRay Report ---
XR chest 1V portable HISTORY: 36 years-old Female ams . Acutely altered mental status COMPARISON: Chest radiograph 04/28/2021 TECHNIQUE: Portable AP view of the chest FINDINGS: Cardiomediastinal and hilar silhouettes are unchanged. No pneumothorax, pleural effusion, airspace co nsolidation or overt pulmonary edema. The bones of the chest appear grossly intact. IMPRESSION: No acute process. ACT 112: Negative or not required by law. The above report was generated using voice recognition software. It may contain grammatical, syntax o r spelling errors. Electronically signed by: Dontae Vyas M.D. 05/24/2022 9:15 AM
[2022-05-24] MEDS: THIAMINE HCL 100 MG in SYRINGE 9 ML IV SCH (10:22)
[2022-05-24] MEDS: FOLIC ACID 1 MG in SYRINGE 9.8 ML IV SCH (10:22)
--- NOTE | 2022-05-24 13:48 | Hospitalist Progress Note ---
Date of Service May 24, 2022 Assessment & Plan (1) Alcohol intoxication: Plan: Significant history of alcoholism since 2018 as per in our document Presented with change in mental status likely secondary to alcohol intoxication with a level more than 600 Has been started with intravenous fluid, vitamin supplements and alcohol withdrawal protocol Clinically much better today Remains generally weak and lethargic without any significant symptoms of withdrawal Will monitor while in the hospital manager environmental health consulted for rehab (2) Alcohol abuse: Plan: Long history of alcohol abuse More than 400 mg per DL of alcohol has been in the chart since 01/26/2018 Alcohol level last 623.9 on admission We will observe for withdrawal symptoms Will ask case maker for rehab program (3) Anxiety: Plan: History of anxiety and has been taking clonazepam DVT prophylaxis SCDs CODE STATUS Full Admission and Anticipated Discharge Date Admission Date: May 23, 2022 Subjective 05/24/2022 The patient was seen and examined in telemetry unit She was admitted with change in mental status likely secondary to alcohol intoxication with a history of significant alcoholism Has been feeling much better during my examination Complains to have some throat pain but denies any other symptoms of withdrawal Review of Systems Review of Systems: All systems reviewed and are unremarkable except as noted below Physical Exam Physical Exam: Lying in bed comfortably Constitutional: well developed, well nourished, + ill appearing and average body habitus Eyes: PERRL, conjunctivae normal, anicteric sclerae ENMT: external ear and nose normal, oropharynx normal Neck: trachea midline, no thyromegaly Respiratory: no respiratory distress Auscultation: lungs clear to auscultation bilaterally Cardiovascular: Rate/Rhythm: regular rate and regular rhythm; not tachycardic Heart Sounds: normal S1 and normal S2; no murmur Extremities: no edema Gastrointestinal (Abdomen): Inspection/Auscultation: normal bowel sounds; abdomen not distended Percussion/Palpation: + abdomen tender (Minimal discomfort in the epigastrium) and abdomen soft Musculoskeletal: No acute arthritis in any joint Neurologic: normal touch/pain/proprioception and moves all extremities; no focal motor deficits and not confused No tremors involving the outstretched hands Lymphatic: no cervical or axillary lymphadenopathy Results & Data Results & Data ([facility]) Vital Signs (Past 12 Hours) Vital Signs Temp Pulse Pulse Resp BP Pulse Ox O2 Del Method 05/24/22 11:31 37.0 C 87 16 108/70 100 Nasal Cannula 05/24/22 07:59 113 H 05/24/22 06:45 36.6 C 108 H 18 106/61 96 Nasal Cannula O2 Flow Rate 05/24/22 11:31 2 05/24/22 07:59 05/24/22 06:45 3 Laboratory Results Short CBC 05/23/22 05/24/22 Range/Units 20:29 06:40 WBC 5.08 4.48 L (4.8-10.8) K/ul Hgb 11.4 L 9.1 L (12.0-16.0) g/dl Hct 36.5 28.9 L (34.1-44.9) % Plt Count 277 197 (130-400) K/uL BMP 05/23/22 05/24/22 20:29 06:40 Sodium 138 142 Potassium 3.8 3.7 Chloride 101 111 H Carbon Dioxide 24 25 BUN 12 10 Creatinine 0.93 0.70 Glucose 193 H 105 H Calcium 8.1 L 7.0 L Liver Function 05/23/22 05/24/22 Range/Units 20:29 06:40 Total Bilirubin 0.3 0.4 (0.2-1.0) mg/dl Direct Bilirubin 0.1 (0-0.2) mg/dl AST 61 H 52 H (13-39) U/L ALT 39 31 (7-52) U/L Alkaline Phosphatase 45 35 (34-104) U/L Albumin 4.3 3.4 (3.4-5.0) gm/dl Urine 05/23/22 Range/Units 21:25 Urine Color Yellow Urine Appearance Clear (Clear) Urine pH 5.5 (4.5-7.5) Ur Specific [place] 1.007 (1.000-1.030) Urine Protein Negative (Negative) Urine Glucose (UA) Negative (Negative) Medications Administered Current Inpatient Medications Enoxaparin Sodium (Enoxaparin Inj 40 Mg/0.4 Ml Syr) 40 mg SQ Q24H GAURAV Stop: 06/23/22 05:59 Last Admin: 05/24/22 06:08 Dose: 40 mg Folic Acid 1 mg/ Syringe 10 mls @ 5 mls/min IV QAM GAURAV Stop: 06/23/22 08:59 Last Admin: 05/24/22 10:22 Dose: 5 mls/min Dextrose/Sodium Chloride (D5w And Nss) 1,000 mls @ 125 mls/hr IV .Q8H GAURAV Stop: 06/23/22 01:32 Last Admin: 05/24/22 10:09 Dose: 125 mls/hr Thiamine HCl 100 mg/ Syringe 10 mls @ 2 mls/min IV QAM GAURAV Stop: 06/23/22 08:59 Last Admin: 05/24/22 10:22 Dose: 2 mls/min Nitroglycerin (Nitroglycerin Sl 0.4 Mg/Tab Tab) 0.4 mg SL Q5M PRN PRN Reason: Chest Pain Stop: 06/23/22 01:32 Ondansetron HCl (Ondansetron Inj 2 Mg/Ml 2 Ml Vial) 4 mg IV Q6H PRN PRN Reason: Nausea Stop: 06/23/22 01:32
[2022-05-24] MEDS: clonazePAM 1 MG TAB PO PRN ×2 (14:52→23:04)
[2022-05-24] MEDS ORDERED: LORazepam 3 MG in SYRINGE 0 ML IV PRN ×2 (19:27→22:50)
[2022-05-24] MEDS ORDERED: LORazepam 2 MG in SYRINGE 0 ML IV PRN ×2 (19:27→22:50)
[2022-05-24] MEDS ORDERED: Ativan IV Alcohol Withdrawal--Active Protocol IV PRN ×2 (19:27→22:50)
[2022-05-24] MEDS: LORazepam 1 MG in SYRINGE 0 ML IV PRN (19:49)
[2022-05-24 20:01] LABS: Partial Thromboplastin Ratio 0.9; Partial Thromboplastin Time 25.3 Seconds (21.0-31.0)
[2022-05-24 21:08] LABS: D Dimer 3760 ug/L FEU (0-500)
[2022-05-24] MEDS ORDERED: OPTIRAY 300 500mL IV ONE (22:41)
[2022-05-24] MEDS ORDERED: POTASSIUM CHLORIDE PWD 20 MEQ PACK PO STA (22:48)
[2022-05-24] MEDS ORDERED: CALCIUM CARBONATE 500 MG CHEWABLE TAB PO STA (22:48)
[2022-05-24] MEDS ORDERED: LACTATED RINGER'S 1,000 ML IV ONE (22:49)
[2022-05-24] MEDS ORDERED: LORazepam 1 MG in SYRINGE 0 ML IV PRN (22:50)
[2022-05-24] MEDS: MAGNESIUM SULFATE / D5W 1 GM/100 ML BAG IV SCH (23:04)
[2022-05-24] MEDS ORDERED: GABAPENTIN 600 MG TAB PO ONE (23:17)
[2022-05-24] MEDS ORDERED: GABAPENTIN 1200MG ALCOHOL WITHDRAWAL LOAD PO SCH (23:30)
[2022-05-25] MEDS: MAGNESIUM SULFATE / D5W 1 GM/100 ML BAG IV SCH (01:00)
[2022-05-25] MEDS: ENOXAPARIN INJ 40 MG/0.4 ML SYR SQ SCH (05:01)
[2022-05-25] MEDS: GABAPENTIN 600 MG TAB PO SCH ×3 (05:01→20:30)
--- NOTE | 2022-05-25 07:17 | CT Scan Report ---
CT ANGIOGRAPHY OF THE CHEST, PULMONARY EMBOLUS PROTOCOL CLINICAL HISTORY: Atypical chest pain. Evaluate for pulmonary embolus. COMPARISON STUDY: Chest radiograph May 23, 2022. TECHNIQUE: Following IV administration of 110 mL of Optiray, helical axial images of the chest were o btained utilizing the pulmonary embolus protocol. Maximal intensity projections and sagittal and cor onal reformats were viewed on an independent 3D workstation. IV contrast was administered without co mplication. Automated exposure control was utilized for the study. A dose lowering technique was ut ilized adhering to the principles of ALARA. CT DOSE: 267.20 mGy.cm FINDINGS: There is a segmental pulmonary embolus within the lateral basal segment of the of the righ t lower lobe shown on axial image 151 of 308. No central pulmonary emboli are present. There is no th oracic aortic dissection. No pulmonary infarct is present. No thoracic lymphadenopathy is present. Th ere is no consolidation to suggest pneumonia. Mild circumferential wall thickening the distal esophag us is present. There are several healing left-sided rib fractures. Hepatic steatosis. IMPRESSION: 1. Segmental pulmonary embolus within the lateral basal segment of the right lower lobe. This finding will be called/faxed to the ordering provider at time of dictation. 2. Circumferential wall thickening of the distal esophagus which is nonspecific but may reflect esoph agitis. 3. Hepatic steatosis. ACT 112: Negative or not required by law. Electronically signed by: Hudson Castelan M.D. 05/25/2022 7:14 AM
[2022-05-25] MEDS: clonazePAM 1 MG TAB PO PRN ×2 (07:33→16:43)
[2022-05-25 08:12] LABS: Basophils # (auto) 0.01 K/uL (0-0.2); Basophils % (auto) 0.2 %; Hematocrit (blood only) 32.1 % (34.1-44.9); Hemoglobin 10.4 g/dl (12.0-16.0); Immature Granulocytes # (auto) 0.01 K/uL (0.00-0.02); Immature Granulocytes % (auto) 0.2 %; Lymphocytes # (auto) 1.12 K/uL (1.2-3.4); Lymphocytes % (auto) 21.9 %; Mean Corpuscular Hemoglobin 25.8 pg (25.0-34.0); Mean Corpuscular Hgb Conc 32.4 g/dL (32.0-36.0); Mean Corpuscular Volume 79.7 fL (80.0-100.0); Mean Platelet Volume 9.8 fL (9.4-12.3); Monocytes # (auto) 0.39 K/uL (0.24-0.82); Monocytes % (auto) 7.6 %; Neutrophils # (auto) 3.49 K/uL (1.4-6.5); Neutrophils % (auto) 68.1 %; Platelet Count 178 K/uL (130-400); RDW Standard Deviation 52.3 fL (36.4-46.3); Red Blood Count 4.03 M/uL (3.93-5.22); White Blood Count 5.12 K/ul (4.8-10.8)
--- NOTE | 2022-05-25 08:14 | Electrocardiogram Report ---
Test Reason : Blood Pressure : / mmHG Vent. Rate : 105 BPM Atrial Rate : 105 BPM P-R Int : 144 ms QRS Dur : 070 ms QT Int : 370 ms P-R-T Axes : 045 022 021 degrees QTc Int : 489 ms Sinus tachycardia Low voltage QRS Abnormal ECG When compared with ECG of 23-MAY-2022 20:23, Premature ventricular complexes are no longer Present Confirmed by Isaac Kincaid ([id number]) on 05/25/2022 8:14:05 AM Referred By: REFERRED SELF Confirmed By:Shawn Kincaid
[2022-05-25] MEDS ORDERED: ENOXAPARIN INJ 30 MG/0.3 ML SYR SQ ONE (08:30)
[2022-05-25 09:22] LABS: BUN Creatinine Ratio 4.9 (10-20); Calcium 8.5 mg/dl (8.5-10.1); Est GFR (African American) 135.2 ml/min; Est GFR (Non-African American) 116.6 ml/min; Magnesium 1.9 mg/dl (1.7-2.4); Phosphorus 2.4 mg/dl (2.5-4.9); Potassium 3.6 mmol/L (3.5-5.1)
[2022-05-25] MEDS: THIAMINE HCL 100 MG in SYRINGE 9 ML IV SCH (09:31)
[2022-05-25] MEDS: FOLIC ACID 1 MG in SYRINGE 9.8 ML IV SCH (09:31)
--- NOTE | 2022-05-25 11:04 | Ultrasound Report ---
BILATERAL LOWER EXTREMITY VENOUS DOPPLER HISTORY: Acute pain and swelling of the lower legs PE COMPARISON STUDY: None. FINDINGS: There is normal compressibility, flow, and augmentation within the bilateral lower extremit y deep venous systems. IMPRESSION: No DVT within the right or left lower extremity. ACT 112: Negative or not required by law. Electronically signed by: Dontae Vyas M.D. 05/25/2022 11:03 AM
[2022-05-25] MEDS: LORazepam 1 MG in SYRINGE 0 ML IV PRN (13:29)
--- NOTE | 2022-05-25 14:37 | Hospitalist Progress Note ---
Date of Service May 25, 2022 Assessment & Plan (1) Pulmonary embolism: Plan: Has had more shortness of breath the night before D-dimer is elevated and CTA did not show right-sided pulmonary embolism Echo of the heart-unremarkable Ultrasound of the legs-no DVT in lower extremities Likely secondary to not being active at home as per the mother No history of clot in the family and not on any OCP Has been started with subcu Lovenox with likely transition to Eliquis on discharge tomorrow Hypercoagulable work-up haVE been sent (2) Alcohol intoxication: Plan: Significant history of alcoholism since 2018 as per in our document Presented with change in mental status likely secondary to alcohol intoxication with a level more than 600 Has been started with intravenous fluid, vitamin supplements and alcohol withdrawal protocol Clinically much better today Remains generally weak and lethargic without any significant symptoms of withdrawal Will monitor while in the hospital corporate security manager consulted for rehab Does not want to go for any inpatient rehab program No signs and or symptoms of withdrawal (3) Alcohol abuse: Plan: Long history of alcohol abuse More than 400 mg per DL of alcohol has been in the chart since 01/26/2018 Alcohol level last 623.9 on admission We will observe for withdrawal symptoms Will ask onsite case manager for rehab program Strongly advised to quit drinking-feels to go to inpatient rehab Numbers of alcohol prescription will be provided (4) Anxiety: Plan: History of anxiety and has been taking clonazepam DVT prophylaxis SCDs CODE STATUS Full Admission and Anticipated Discharge Date Admission Date: May 23, 2022 Subjective 05/24/2022 The patient was seen and examined in telemetry unit She was admitted with change in mental status likely secondary to alcohol intoxication with a history of significant alcoholism Has been feeling much better during my examination Complains to have some throat pain but denies any other symptoms of withdrawal 05/25/2022 The patient was seen and examined in telemetry unit She remains stable and denies any symptoms wants to go home No tremors, no palpitation, no chest pain and no shortness of breath Review of Systems Review of Systems: All systems reviewed and are unremarkable except as noted below Physical Exam Physical Exam: Lying in bed comfortably Constitutional: well developed, well nourished, + ill appearing and average body habitus Eyes: PERRL, conjunctivae normal, anicteric sclerae ENMT: external ear and nose normal, oropharynx normal Neck: trachea midline, no thyromegaly Respiratory: no respiratory distress Auscultation: lungs clear to auscultation bilaterally Cardiovascular: Rate/Rhythm: regular rate, regular rhythm and + tachycardic Heart Sounds: normal S1 and normal S2; no murmur Extremities: no edema Gastrointestinal (Abdomen): Inspection/Auscultation: normal bowel sounds; abdomen not distended Percussion/Palpation: + abdomen tender (Minimal discomfort in the epigastrium) and abdomen soft Neurologic: normal touch/pain/proprioception and moves all extremities; no focal motor deficits Does not have any tremors with outstretched hands no gait abnormality Lymphatic: no cervical or axillary lymphadenopathy Results & Data Results & Data ([facility]) Vital Signs (Past 12 Hours) Vital Signs Temp Pulse Pulse Resp BP Pulse Ox O2 Del Method 05/25/22 13:00 36.7 C 102 H 20 137/58 L 96 Room Air 05/25/22 11:15 36.7 C 95 H 17 124/90 98 Room Air 05/25/22 07:45 91 H 05/25/22 07:40 36.7 C 05/25/22 07:26 92 H 18 116/86 99 Room Air 05/25/22 03:44 37.1 C 91 H 14 115/78 98 Room Air Laboratory Results Short CBC 05/25/22 Range/Units 07:42 WBC 5.12 (4.8-10.8) K/ul Hgb 10.4 L (12.0-16.0) g/dl Hct 32.1 L (34.1-44.9) % Plt Count 178 (130-400) K/uL BMP 05/25/22 07:42 Sodium 133 L D Potassium 3.6 Chloride 101 Carbon Dioxide 25 BUN 3 L Creatinine 0.61 Glucose 85 Calcium 8.5 Medications Administered Current Inpatient Medications Clonazepam (Clonazepam 1 Mg Tab) 1 mg PO TID PRN PRN Reason: Anxiety Stop: 06/23/22 14:19 Last Admin: 05/25/22 07:33 Dose: 1 mg Enoxaparin Sodium (Enoxaparin 80 Mg/0.8 Ml Syr) 70 mg SQ Q12H GAURAV Stop: 06/24/22 20:59 Gabapentin (Gabapentin 600 Mg Tab) 600 mg PO Q12H GAURAV Stop: 05/27/22 11:31 Gabapentin (Gabapentin 600 Mg Tab) 600 mg PO Q24H [facility] Stop: 05/28/22 11:31 Gabapentin (Gabapentin 600 Mg Tab) 600 mg PO Q8H [facility] Stop: 05/26/22 11:31 Folic Acid 1 mg/ Syringe 10 mls @ 5 mls/min IV QAM GAURAV Stop: 06/23/22 08:59 Last Admin: 05/25/22 09:31 Dose: 5 mls/min Thiamine HCl 100 mg/ Syringe 10 mls @ 2 mls/min IV QAM [facility] Stop: 06/23/22 08:59 Last Admin: 05/25/22 09:31 Dose: 2 mls/min Lorazepam 1 mg/ Syringe 1 mls @ 2 mls/min IV UD PRN; Protocol PRN Reason: EtOH Withdrawal AWSS Score 6,7 Stop: 06/23/22 19:26 Last Admin: 05/25/22 13:29 Dose: 2 mls/min Lorazepam 2 mg/ Syringe 2 mls @ 2 mls/min IV UD PRN; Protocol PRN Reason: EtOH Withdrawal AWSS Score 8,9 Stop: 06/23/22 19:26 Nitroglycerin (Nitroglycerin Sl 0.4 Mg/Tab Tab) 0.4 mg SL Q5M PRN PRN Reason: Chest Pain Stop: 06/23/22 01:32 Ondansetron HCl (Ondansetron Inj 2 Mg/Ml 2 Ml Vial) 4 mg IV Q6H PRN PRN Reason: Nausea Stop: 06/23/22 01:32 Last Admin: 05/24/22 21:48 Dose: 4 mg
[2022-05-25] MEDS: ENOXAPARIN 80 MG/0.8 ML SYR SQ SCH (20:31)
--- NOTE | 2022-05-26 01:59 | Emergency Department Note ---
ED Visit Note The patient was signed out to me awaiting sobriety. The patient was sober and was discharged. .
[2022-05-26] MEDS: GABAPENTIN 600 MG TAB PO SCH ×2 (03:39→11:34)
[2022-05-26] MEDS: FOLIC ACID 1 MG in SYRINGE 9.8 ML IV SCH (09:50)
[2022-05-26] MEDS: THIAMINE HCL 100 MG in SYRINGE 9 ML IV SCH (09:50)
[2022-05-26] MEDS: ENOXAPARIN 80 MG/0.8 ML SYR SQ SCH (09:51)
--- NOTE | 2022-05-26 17:08 | Hospitalist Progress Note ---
Date of Service May 26, 2022 Assessment & Plan (1) Pulmonary embolism: Plan: Per Dr. Crespo's notes with addendum: Has had more shortness of breath the night before D-dimer is elevated and CTA did not show right-sided pulmonary embolism Echo of the heart-unremarkable Ultrasound of the legs-no DVT in lower extremities Likely secondary to not being active at home as per the mother No history of clot in the family and not on any OCP Has been started with subcu Lovenox with likely transition to Eliquis on discharge tomorrow Hypercoagulable work-up haVE been sent 05/26 Hemodynamically stable No hypoxia with ambulation Discharge on Eliquis 5 mg twice daily Follow-up with primary care physician next week Follow-up hypercoagulable work-up (2) Alcohol intoxication: Plan: Significant history of alcoholism since 2018 as per in our document Presented with change in mental status likely secondary to alcohol intoxication with a level more than 600 Has been started with intravenous fluid, vitamin supplements and alcohol withdrawal protocol Clinically much better today Remains generally weak and lethargic without any significant symptoms of withdrawal Will monitor while in the hospital manager forensic consulted for rehab Does not want to go for any inpatient rehab program No signs and or symptoms of withdrawal 05/26 Patient to continue 2 more doses of gabapentin p.o. to complete tapering course Declined inpatient alcohol rehab program Patient to follow-up with primary care physician next week Encourage complete alcohol cessation, which patient agrees Please reevaluate fitness for driving (3) Alcohol abuse: Plan: Long history of alcohol abuse More than 400 mg per DL of alcohol has been in the chart since 01/26/2018 Alcohol level last 623.9 on admission We will observe for withdrawal symptoms Will ask registered nurse hh case manager for rehab program Strongly advised to quit drinking-feels to go to inpatient rehab Numbers of alcohol prescription will be provided 05/26 As per above (4) Anxiety: Plan: History of anxiety and has been taking clonazepam DVT prophylaxis SCDs CODE STATUS Full Admission and Anticipated Discharge Date Admission Date: May 23, 2022 Subjective ff up for acute PE, etc seen resting in bed, comfortable states she feels much better overall denies shortness of breath, chest pain, palpitations Ambulated to bathroom with no problems Denies tremors, confusion, sweating, fevers or chills States she is ready and would like to be discharged today Two-step exercise test performed Patient did not have hypoxia, does not meet criteria for supplemental oxygen for discharge As per patient, she felt fine after walking, denies dizziness, shortness of breath or any symptoms Review of Systems Review of Systems: all noted and negative except for above Physical Exam Physical Exam: General- oriented x 3, not in distress, speaks in sentences with no effort or accessory muscle use Eyes- anicteric Neck- no JVD Lungs- clear breath sounds bilaterally, no rales/wheezes Heart- normal rate, regular rhythm; no murmurs Abdomen- normal bowel sounds, nondistended, soft, nontender Extremities- no pretibial edema, no calf tenderness Neuro- alert, oriented x 3; no gross focal neurologic deficits Skin- warm & dry Results & Data Results & Data ([facility]) Vital Signs (Past 12 Hours) Vital Signs Temp Pulse Pulse Pulse Pulse Pulse Pulse 05/26/22 15:00 103 H 05/26/22 14:45 36.7 C 88 96 H 05/26/22 14:29 120 H 105 H 105 H 05/26/22 12:00 36.7 C 96 H 05/26/22 07:45 36.7 C 83 05/26/22 07:39 81 Resp Resp Resp Resp BP Pulse Ox Pulse Ox 05/26/22 15:00 05/26/22 14:45 18 114/80 95 05/26/22 14:29 18 18 18 96 05/26/22 12:00 18 114/80 95 05/26/22 07:45 18 110/76 96 05/26/22 07:39 Pulse Ox Pulse Ox O2 Del Method 05/26/22 15:00 05/26/22 14:45 05/26/22 14:29 98 98 05/26/22 12:00 Room Air 05/26/22 07:45 Room Air 05/26/22 07:39 all noted and reviewed including below
--- NOTE | 2022-05-26 17:29 | Discharge Summary ---
Discharge Summary Date of Service May 26, 2022 Notes For Next Care Provider Please follow-up for hypercoagulable work-up. Please reevaluate fitness for driving. Medication Changes From Visit Eliquis 5 mg p.o. twice daily Gabapentin 600 mg p.o. every 12 hours, x2 doses Protonix 40 mg p.o. daily Admission HPI Per Admitting Provider HISTORY OF PRESENT ILLNESS: A 36-year-old female with past medical history significant for alcohol intoxication, seems to be also on clonazepam as needed for anxiety,was found to have altered mental status at home. The friend with whom she is staying found the patient in the bed confused and she could not wake her up and found some alcohol in the room and also some clonazepam. EMS also found to have two different antibiotics in addition to clonazepam. As she was mildly hypoglycemia she was given dextrose prehospital. EMS tried to give Narcan with no improvement in mentation. She was brought in here. Her CT head was okay. Chest x-ray okay. The patient's alcohol level was found to be in 620 range. Saturating okay. blood pressure okay. The urinalysis fine. Otherwise, tox screen is okay. COVID is negative. At the time of my exam, the patient is opening her eyes, could tell her name, but could not answer any other questions. Could not get any history from the patient. [facility] EMR is also down and could not access the records. Admission Exam Per Admitting Provider GENERAL: The patient is alert and awake, not in acute distress. VITAL SIGNS: Temperature 37, pulse 113, respiratory rate 17, blood pressure 113/65, oxygen 99% on room air. HEENT: Pupils equal, round and reactive to light. Oral mucosa dry. NECK: No neck masses seen. CARDIOVASCULAR: S1 and S2 heard. Tachycardia. No murmurs. RESPIRATORY SYSTEM: Normal AP diameter. No accessory muscle use. No wheezing. ABDOMEN: Soft, bowel sounds present, no distention. CENTRAL NERVOUS SYSTEM: Alert and awake, not obeying any commands, moving extremities. EXTREMITIES: No edema, no erythema. Principal Dx & Hospital Course #1 = Principal Diagnosis (1) Pulmonary embolism: Per Dr. Crespo's notes with addendum: Has had more shortness of breath the night before D-dimer is elevated and CTA did not show right-sided pulmonary embolism Echo of the heart-unremarkable Ultrasound of the legs-no DVT in lower extremities Likely secondary to not being active at home as per the mother No history of clot in the family and not on any OCP Has been started with subcu Lovenox with likely transition to Eliquis on discharge tomorrow Hypercoagulable work-up haVE been sent 05/26 Hemodynamically stable No hypoxia with ambulation Discharge on Eliquis 5 mg twice daily Follow-up with primary care physician next week Follow-up hypercoagulable work-up (2) Alcohol intoxication: Significant history of alcoholism since 2018 as per in our document Presented with change in mental status likely secondary to alcohol intoxication with a level more than 600 Has been started with intravenous fluid, vitamin supplements and alcohol withdrawal protocol Clinically much better today Remains generally weak and lethargic without any significant symptoms of withdrawal Will monitor while in the hospital sports centre manager consulted for rehab Does not want to go for any inpatient rehab program No signs and or symptoms of withdrawal 05/26 Patient to continue 2 more doses of gabapentin p.o. to complete tapering course Declined inpatient alcohol rehab program Patient to follow-up with primary care physician next week Encourage complete alcohol cessation, which patient agrees Please reevaluate fitness for driving (3) Alcohol abuse: Long history of alcohol abuse More than 400 mg per DL of alcohol has been in the chart since 01/26/2018 Alcohol level last 623.9 on admission We will observe for withdrawal symptoms Will ask case hardener for rehab program Strongly advised to quit drinking-feels to go to inpatient rehab Numbers of alcohol prescription will be provided 05/26 As per above (4) Anxiety: History of anxiety and has been taking clonazepam DVT prophylaxis SCDs CODE STATUS Full Discharge Exam General- oriented x 3, not in distress, speaks in sentences with no effort or accessory muscle use Eyes- anicteric Neck- no JVD Lungs- clear breath sounds bilaterally, no rales/wheezes Heart- normal rate, regular rhythm; no murmurs Abdomen- normal bowel sounds, nondistended, soft, nontender Extremities- no pretibial edema, no calf tenderness Neuro- alert, oriented x 3; no gross focal neurologic deficits Skin- warm & dry Updated Medication List Medication Instructions Recorded Confirmed Type clonazepam 1 mg tablet 1 mg PO TID PRN Anxiety 02/28/21 05/23/22 History apixaban 5 mg (74 tabs) tablets in 5 mg PO BID #74 ea 05/25/22 Rx a dose pack (Eliquis) gabapentin 600 mg tablet 600 mg PO Q12H #2 tabs 05/26/22 Rx pantoprazole 40 mg tablet,delayed 40 mg PO DAILY #30 tabs 05/26/22 Rx release (Protonix) Hospital Stay Data Consultations 05/23/22 22:28 ED Decision to Admit Stat Diagnostic Imagining Performed Chest X-Ray 05/23/22 20:21 XR chest 1V portable HISTORY: 36 years-old Female ams . Acutely altered mental status COMPARISON: Chest radiograph 04/28/2021 TECHNIQUE: Portable AP view of the chest FINDINGS: Cardiomediastinal and hilar silhouettes are unchanged. No pneumothorax, pleural effusion, airspace consolidation or overt pulmonary edema. The bones of the chest appear grossly intact. IMPRESSION: No acute process. ACT 112: Negative or not required by law. The above report was generated using voice recognition software. It may contain grammatical, syntax or spelling errors. Electronically signed by: Dontae Vyas M.D. 05/24/2022 9:[address] 05/23/22 20:21 CT OF THE HEAD WITHOUT CONTRAST CLINICAL HISTORY: Altered mental status. COMPARISON STUDY: Head CT October 08, 2021. CT DOSE: 537.48 mGy.cm TECHNIQUE: Helical axial images of the head were obtained without IV contrast. Automated exposure control was utilized for the study. A dose lowering technique was utilized adhering to the principles of ALARA. FINDINGS: This exam is mildly compromised by motion artifact. A linear density projecting over the left frontal lobe on axial image 15 of 28 is artifactual. No acute intracranial hemorrhage, midline shift or mass effect is present. Ventricular system is normal. Basal cisterns are patent. There are no extra- axial collections. There are no findings to suggest acute dural sinus thrombosis or acute territorial infarct. No calvarial fracture is identified. IMPRESSION: 1. No acute intracranial findings. Exam mildly compromised by artifact. 2. No calvarial fracture. ACT 112: Negative or not required by law. Electronically signed by: Hudson Castelan M.D. 05/23/2022 9:25 PM Chest CTA 05/24/22 21:10 CT ANGIOGRAPHY OF THE CHEST, PULMONARY EMBOLUS PROTOCOL CLINICAL HISTORY: Atypical chest pain. Evaluate for pulmonary embolus. COMPARISON STUDY: Chest radiograph May 23, 2022. TECHNIQUE: Following IV administration of 110 mL of Optiray, helical axial images of the chest were obtained utilizing the pulmonary embolus protocol. Maximal intensity projections and sagittal and coronal reformats were viewed on an independent 3D workstation. IV contrast was administered without complication. Automated exposure control was utilized for the study. A dose lowering technique was utilized adhering to the principles of ALARA. CT DOSE: 267.20 mGy.cm FINDINGS: There is a segmental pulmonary embolus within the lateral basal segment of the of the right lower lobe shown on axial image 151 of 308. No central pulmonary emboli are present. There is no thoracic aortic dissection. No pulmonary infarct is present. No thoracic lymphadenopathy is present. There is no consolidation to suggest pneumonia. Mild circumferential wall thickening the distal esophagus is present. There are several healing left-sided rib fractures. Hepatic steatosis. IMPRESSION: 1. Segmental pulmonary embolus within the lateral basal segment of the right lower lobe. This finding will be called/faxed to the ordering provider at time of dictation. 2. Circumferential wall thickening of the distal esophagus which is nonspecific but may reflect esophagitis. 3. Hepatic steatosis. ACT 112: Negative or not required by law. Electronically signed by: Hudson Castelan M.D. 05/25/2022 7:14 AM Venous Doppler Study 05/25/22 08:48 BILATERAL LOWER EXTREMITY VENOUS DOPPLER HISTORY: Acute pain and swelling of the lower legs PE COMPARISON STUDY: None. FINDINGS: There is normal compressibility, flow, and augmentation within the bilateral lower extremity deep venous systems. IMPRESSION: No DVT within the right or left lower extremity. ACT 112: Negative or not required by law. Electronically signed by: Dontae Vyas M.D. 05/25/2022 11:03 AM Pending Results Patient Have Any Pending Studies at Discharge: No Discharge Instructions Given to Patient (Per Discharging Provider) PLEASE REFER TO YOUR NEW MEDICATION LIST AND FOLLOW INSTRUCTIONS CAREFULLY. YOUR NEW MEDICATIONS INCLUDE: ELIQUIS- blood thinner, treatment for pulmonary embolism GABAPENTIN- to prevent alcohol withdrawal PROTONIX- for esophagitis DRINK PLENTY OF WATER. TAKE A MULTIVITAMIN DAILY. NO ALCOHOL/SMOKING. DO NOT TAKE MEDICATIONS UNDER THE CLASS OF NSAID'S INCLUDING IBUPROFEN, NAPROXEN, ETC THESE CAN INCREASE YOUR BLEEDING RISK, WORSEN ESOPHAGITIS. PLEASE CALL YOUR PRIMARY CARE PHYSICIAN OR RETURN TO THE ER IF WITH WORSENING OF SYMPTOMS, INCLUDING SHORTNESS OF BREATH, CHEST PAIN, DIZZINESS, ETC. IF YOU HAVE ANY HEAD TRAUMA, PROCEED TO ER IMMEDIATELY FOR CT SCAN OF THE HEAD. FOLLOW UP WITH PRIMARY CARE PHYSICIAN OUTLINED ABOVE. Total Time Total Time Spent Total Time Spent (In Minutes): >30 minutes
[2022-05-26] MEDS ORDERED: GABAPENTIN 600 MG TAB PO SCH (23:30)
[2022-05-28] MEDS ORDERED: GABAPENTIN 600 MG TAB PO SCH (11:30)
[2022-05-29 16:58] LABS: B2 Glycoprotein IgG <2.0 U/mL (<20.0); B2 Glycoprotein IgM 2.7 U/mL (<20.0)
[2022-05-30 22:07] LABS: Anti Cardiolipin Ab IgG <2.0 GPL-U/mL; Anti Cardiolipin Ab IgM 5.1 MPL-U/mL; Anti-Thrombin III Activity 68 % normal (80-135)
[2022-05-31 22:02] LABS: Factor 5 Mutation NEGATIVE
== END 2022-05-26 17:20 | disposition home or self-care (01) | DRG 896 ==
LOC: ED 20:08 → 2S 23:50 → SUATTDRO 23:50 → 2S 05-24 01:06

== ENCOUNTER 2022-08-13 12:34 | Inpatient (IN) ==
[2022-08-13] MEDS ORDERED: MULTI-VITAMIN INFUSION 10 ML, THIAMINE HCL 100 MG, FOLIC ACID 1 MG in SODIUM CHLORIDE 0... IV ONE ×2 (13:30→18:38)
[2022-08-13 13:37] LABS: Basophils # (auto) 0.03 K/uL (0-0.2); Basophils % (auto) 0.5 %; Eosinophils # (auto) 0.01 K/uL (0-0.50); Eosinophils % (auto) 0.2 %; Hematocrit (blood only) 38.3 % (34.1-44.9); Hemoglobin 12.1 g/dl (12.0-16.0); Immature Granulocytes # (auto) 0.02 K/uL (0.00-0.02); Immature Granulocytes % (auto) 0.4 %; Lymphocytes # (auto) 1.43 K/uL (1.2-3.4); Lymphocytes % (auto) 26.2 %; Mean Corpuscular Hemoglobin 25.9 pg (25.0-34.0); Mean Corpuscular Hgb Conc 31.6 g/dL (32.0-36.0); Monocytes # (auto) 0.33 K/uL (0.24-0.82); Neutrophils # (auto) 3.64 K/uL (1.4-6.5); Neutrophils % (auto) 66.7 %; Platelet Count 326 K/uL (130-400); RDW Coefficient of Variation 21.4 % (11.5-14.5); RDW Standard Deviation 62.9 fL (36.4-46.3); Red Blood Count 4.67 M/uL (3.93-5.22); White Blood Count 5.46 K/ul (4.8-10.8)
[2022-08-13 13:41] LABS: Pregnancy Test, Serum Negative (Negative)
[2022-08-13 13:58] LABS: Anisocytosis Present
[2022-08-13 14:17] LABS: INR 0.9 (0.9-1.1); Prothrombin Time 9.6 Seconds (9.0-12.0)
[2022-08-13 14:33] LABS: Albumin Globulin Ratio 1.3 (0.9-2); Albumin Level 4.7 gm/dl (3.4-5.0); BUN Creatinine Ratio 14.9 (10-20); Bilirubin,Total 0.4 mg/dl (0.2-1.0); Calcium 8.1 mg/dl (8.5-10.1); Creatinine Clr Calc Pharmacy 84.6 ml/min; Est GFR (African American) 90.5 ml/min; Est GFR (Non-African American) 78.1 ml/min; Globulin 3.7 gm/dl (2.5-4.0); Total Protein 8.4 gm/dl (6.0-8.3)
[2022-08-13 14:34] LABS: Potassium 3.6 mmol/L (3.5-5.1)
--- NOTE | 2022-08-13 14:38 | XRay Report ---
LEFT FEMUR 4 VIEWS HISTORY: Left femur pain, contusion COMPARISON: None. FINDINGS: There is no fracture or dislocation. Soft tissues are unremarkable. No radiopaque foreign b odies. IMPRESSION: No fractures. ACT 112: Negative or not required by law. Electronically signed by: José Nash M.D. 08/13/2022 2:36 PM
[2022-08-13] MEDS ORDERED: D5W AND NSS 1,000 ML IV STA (15:02)
[2022-08-13] MEDS ORDERED: THIAMINE HCL 200 MG in SODIUM CHLORIDE 0.9% 50 ML IV STA (15:02)
[2022-08-13 15:19] LABS: Influenza A virus by PCR Negative (Neg); Influenza B virus by PCR Negative (Neg); RSV by PCR Negative (Neg); SARS CoV2 RNA(COVID-19) Ceph NEGATIVE (Negative)
--- NOTE | 2022-08-13 15:43 | CT Scan Report ---
CERVICAL SPINE CT CT DOSE: 911.34 mGy.cm HISTORY: etoh, fall TECHNIQUE: Multiaxial CT images of the cervical spine were performed and reformatted in the sagittal and coronal plane without the use of contrast. A dose lowering technique was utilized adhering to th e principles of ALARA. COMPARISON: Cervical spine CT 08/01/2022. FINDINGS: No fractures. No subluxation. Prevertebral soft tissues and the C1-C2 interval are intact. No pneumothorax. Moderate to severe degenerative disc disease at C5-C6, unchanged. IMPRESSION: No fractures within the cervical spine. ACT 112: Negative or not required by law. Electronically signed by: José Nash M.D. 08/13/2022 3:41 PM
--- NOTE | 2022-08-13 15:43 | CT Scan Report ---
HEAD CT NONCONTRAST CT DOSE: HISTORY: syncope, fall TECHNIQUE: Multiaxial CT images of the head were performed without the use of intravenous contrast. A utomated exposure control was utilized for this study. A dose lowering technique was utilized adheri ng to the principles of ALARA. Comparison: Head CT 08/01/2022. Findings: The paranasal sinuses and mastoid air cells are clear. The calvarium and skull base are int act. The ventricles and sulci are within normal limits. There is no mass, hematoma, midline shift, or acute infarct. Impression: No acute intracranial abnormality. ACT 112: Negative or not required by law. Electronically signed by: José Nash M.D. 08/13/2022 3:41 PM
[2022-08-13] MEDS ORDERED: LORazepam 2 MG/1 ML VIAL IV STA (17:24)
[2022-08-13] MEDS ORDERED: PHENobarbital sodium 65 MG/ML VIAL IV STA (17:49)
[2022-08-13] MEDS ORDERED: POLYETHYLENE (MIRALAX) 17 GM PACK PO PRN (18:01)
[2022-08-13] MEDS ORDERED: ACETAMINOPHEN 325 MG TAB PO PRN (18:01)
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
[2022-08-13] MEDS ORDERED: chlordiazePOXIDE ALCOHOL WITHDRAWL 50MG PO STA (18:38)
[2022-08-13] MEDS: chlordiazePOXIDE HCl 25 MG CAP PO SCH (19:57)
[2022-08-13] MEDS: APIXABAN 5 MG TABLET PO SCH (21:18)
--- NOTE | 2022-08-13 21:49 | Emergency Department Note ---
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 pneumothorax. Moderate to severe degenerative disc disease at C5-C6, unchanged. IMPRESSION: No fractures within the cervical spine. ACT 112: Negative or not required by law. Electronically signed by: José Nash M.D. 08/13/2022 3:41 PM Discharge Plan Visit Data Chief Complaint: Alcohol Intoxication Stated Complaint: ETOH, LETHARGIC, UNABLE TO AMBULATE ED Provider: Brad Huang Discharge Problem: Alcohol withdrawal, Metabolic acidosis, Delirium tremens Patient Disposition: Admitted As Inpatient Discharge Instructions Interventions: ED Discharge Assessment Last Done: 08/13/22 20:25 : Alcohol withdrawal Qualifiers: Complication of substance-induced condition: with delirium Qualified Code(s): F10.931 - Alcohol use, unspecified with withdrawal delirium
[2022-08-13] MEDS: LACTATED RINGER'S 1,000 ML IV SCH (23:56)
[2022-08-14] MEDS: chlordiazePOXIDE HCl 25 MG CAP PO SCH ×4 (00:53→19:06)
[2022-08-14] MEDS: LORazepam 2 MG/1 ML VIAL IV PRN ×3 (05:40→15:27)
[2022-08-14 06:25] LABS: Hematocrit (blood only) 28.9 % (34.1-44.9); Hemoglobin 9.4 g/dl (12.0-16.0); Mean Corpuscular Hgb Conc 32.5 g/dL (32.0-36.0); Mean Corpuscular Volume 80.1 fL (80.0-100.0); Platelet Count 232 K/uL (130-400); RDW Coefficient of Variation 21.2 % (11.5-14.5); RDW Standard Deviation 61.8 fL (36.4-46.3); Red Blood Count 3.61 M/uL (3.93-5.22); White Blood Count 5.19 K/ul (4.8-10.8)
[2022-08-14 06:32] LABS: Prothrombin Time 10.4 Seconds (9.0-12.0)
[2022-08-14 06:57] LABS: Albumin Globulin Ratio 1.3 (0.9-2); Albumin Level 3.5 gm/dl (3.4-5.0); BUN Creatinine Ratio 13.8 (10-20); Bilirubin,Total 0.6 mg/dl (0.2-1.0); Calcium 7.3 mg/dl (8.5-10.1); Creatinine Clr Calc Pharmacy 115.2 ml/min; Est GFR (African American) 131.5 ml/min; Est GFR (Non-African American) 113.4 ml/min; Globulin 2.8 gm/dl (2.5-4.0); Magnesium 1.6 mg/dl (1.7-2.4); Phosphorus 1.9 mg/dl (2.5-4.9); Potassium 3.6 mmol/L (3.5-5.1); Total Protein 6.3 gm/dl (6.0-8.3)
[2022-08-14] MEDS ORDERED: POTASSIUM PHOS 3 MMOL/1 ML INFUSION IV STA (07:26)
[2022-08-14] MEDS ORDERED: POTASSIUM PHOSPHATE 30 MMOL in SODIUM CHLORIDE 0.9% 500 ML IV ONE (07:45)
[2022-08-14] MEDS: APIXABAN 5 MG TABLET PO SCH ×2 (08:36→23:25)
[2022-08-14] MEDS: FOLIC ACID 1 MG TAB PO SCH (08:38)
[2022-08-14] MEDS: MAGNESIUM OXIDE 400 MG TAB PO SCH ×3 (08:38→23:24)
[2022-08-14] MEDS: THIAMINE HCL 100 MG TAB PO SCH (08:39)
[2022-08-14] MEDS ORDERED: buPROPion SR 100 MG TABCR PO SCH (09:00)
[2022-08-14] MEDS ORDERED: FAMOTIDINE 20 MG in SYRINGE 3 ML IV ONE (09:24)
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
[2022-08-14] MEDS: LACTATED RINGER'S 1,000 ML IV SCH (11:40)
--- NOTE | 2022-08-14 13:51 | Hospitalist Progress Note ---
Date of Service August 14, 2022 Assessment & Plan (1) Alcohol withdrawal: Plan: - multiple presentations for alcohol intoxication and withdrawal - initially intoxicated but started withdrawing in the ED - tremulous, agitated, tachycardic - given 2mg IV Ativan with minimal response - given IV phenobarbital in ED - started on librium taper for withdrawal - IV Ativan PRN for withdrawal - IVF, encourage po intake - folic acid, thiamine - psych consulted for alcohol use disorder - recommending gabapentin 300mg TID prn for anxiety between Ativan doses - also provided resources for rehab - patient is connected to outpatient resources at this time - telemetry monitoring for now (2) Metabolic acidosis: Plan: - likely due to alcoholic ketoacidosis - BG wnl - IVF per ED and on admission - encourage PO intake - resolved (3) Anxiety: Plan: - continue home medications - will continue bupropion - likely discontinue clonazepam on discharge as this is dangerous/contraindicated in alcohol use disorder due to risk of respiratory depression - psych recommends gabapentin prn for anxiety (4) History of pulmonary embolism: Plan: - recently had PE diagnosed - diagnosed with PE in 05/2022 - continue Eliquis for now - follow up outpatient to complete 3 month course Plan DVT ppx: Eliquis Code Status: Full Code Dispo: telemetry Carlos Vo MD Hospital Medicine Admission and Anticipated Discharge Date Admission Date: August 13, 2022 Subjective Patient with alcohol use disorder, anxiety presented with alcohol intoxication and then went into alcohol withdrawal in ED and admitted for the same. Started on Librium taper with prn Ativan IV. Psych consulted and resources given. Patient reports still feeling like she is withdrawing and fatigued from the whole ordeal. She denies chest pain, shortness of breath, n/v/d, abdominal pain but some mild cramping in lower abdomen from her menses. Review of Systems Review of Systems: All systems reviewed & are unremarkable except as noted in Subjective Physical Exam Physical Exam: General- oriented x 3, not in distress, speaks in sentences with no effort or accessory muscle use, anxious appearing Eyes- anicteric Neck- no JVD Lungs- clear breath sounds bilaterally, no rales/wheezes Heart- tachycardia, regular rhythm; no murmurs Abdomen- normal bowel sounds, nondistended, soft, mildly tender in lower abdomen Extremities- no pretibial edema, no calf tenderness Neuro- alert, oriented x 3; no gross focal neurologic deficits. Mildly tremulous with very mild tongue fasiculations Skin- warm & dry Results & Data Results & Data ([facility]) Diagnostic Findings Laboratory Results WBC 5.19 K/ul (4.8-10.8) 08/14/22 05:23 RBC 3.61 M/uL (3.93-5.22) L 08/14/22 05:23 Hgb 9.4 g/dl (12.0-16.0) L 08/14/22 05:23 Hct 28.9 % (34.1-44.9) L 08/14/22 05:23 MCV 80.1 fL (80.0-100.0) 08/14/22 05:23 MCH 26.0 pg (25.0-34.0) 08/14/22 05:23 MCHC 32.5 g/dL (32.0-36.0) 08/14/22 05:23 RDW Std Deviation 61.8 fL (36.4-46.3) H 08/14/22 05:23 RDW Coeff of Chai 21.2 % (11.5-14.5) H 08/14/22 05:23 Plt Count 232 K/uL (130-400) 08/14/22 05:23 MPV 9.0 fL (9.4-12.3) L 08/14/22 05:23 Immature Gran % (Auto) 0.4 % 08/13/22 12:58 Neut % (Auto) 66.7 % 08/13/22 12:58 Lymph % (Auto) 26.2 % 08/13/22 12:58 [place] % (Auto) 6.0 % 08/13/22 12:58 Eos % (Auto) 0.2 % 08/13/22 12:58 Baso % (Auto) 0.5 % 08/13/22 12:58 Neut # (Auto) 3.64 K/uL (1.4-6.5) 08/13/22 12:58 Lymph # (Auto) 1.43 K/uL (1.2-3.4) 08/13/22 12:58 [place] # (Auto) 0.33 K/uL (0.24-0.82) 08/13/22 12:58 Eos # (Auto) 0.01 K/uL (0-0.50) 08/13/22 12:58 Baso # (Auto) 0.03 K/uL (0-0.2) 08/13/22 12:58 Immature Gran # (Auto) 0.02 K/uL (0.00-0.02) 08/13/22 12:58 Anisocytosis Present 08/13/22 12:58 PT 10.4 Seconds (9.0-12.0) 08/14/22 05:23 INR 1.0 (0.9-1.1) 08/14/22 05:23 Sodium 140 mmol/L (136-145) 08/14/22 05:23 Potassium 3.6 mmol/L (3.5-5.1) 08/14/22 05:23 Chloride 107 mmol/L (98-107) 08/14/22 05:23 Carbon Dioxide 23 mmol/L (21-32) 08/14/22 05:23 Anion Gap 10 (3-11) 08/14/22 05:23 BUN 9 mg/dl (6-23) 08/14/22 05:23 Creatinine 0.65 mg/dl (0.6-1.2) 08/14/22 05:23 Est Cr Clr Drug Dosing 115.2 ml/min 08/14/22 05:23 Est GFR ( Amer) 131.5 ml/min 08/14/22 05:23 Est GFR (Non-Af Amer) 113.4 ml/min 08/14/22 05:23 BUN/Creatinine Ratio 13.8 (10-20) 08/14/22 05:23 Glucose 68 mg/dl (70-99(Fasting)) L 08/14/22 05:23 Calcium 7.3 mg/dl (8.5-10.1) L 08/14/22 05:23 Phosphorus 1.9 mg/dl (2.5-4.9) L D 08/14/22 05:23 Magnesium 1.6 mg/dl (1.7-2.4) L 08/14/22 05:23 Total Bilirubin 0.6 mg/dl (0.2-1.0) 08/14/22 05:23 AST 39 U/L (13-39) 08/14/22 05:23 ALT 25 U/L (7-52) 08/14/22 05:23 Alkaline Phosphatase 45 U/L (34-104) 08/14/22 05:23 Total Protein 6.3 gm/dl (6.0-8.3) D 08/14/22 05:23 Albumin 3.5 gm/dl (3.4-5.0) 08/14/22 05:23 Globulin 2.8 gm/dl (2.5-4.0) 08/14/22 05:23 Albumin/Globulin Ratio 1.3 (0.9-2) 08/14/22 05:23 Lipase 12 U/L (11-82) 08/13/22 12:58 HCG, Qual Negative (Negative) 08/13/22 12:58 Ethyl Alcohol mg/dL 500.1 mg/dl (<10.0) H 08/13/22 14:01 SARS-CoV-2 (PCR) NEGATIVE (Negative) 08/13/22 14:25 Influenza Type A (PCR) Negative (Neg) 08/13/22 14:25 Influenza Type B (PCR) Negative (Neg) 08/13/22 14:25 RSV (RT-PCR) Negative (Neg) 08/13/22 14:25 Impressions Femur X-Ray 08/13/22 14:09 LEFT FEMUR 4 VIEWS HISTORY: Left femur pain, contusion COMPARISON: None. FINDINGS: There is no fracture or dislocation. Soft tissues are unremarkable. No radiopaque foreign bodies. IMPRESSION: No fractures. ACT 112: Negative or not required by law. Electronically signed by: José Nash M.D. 08/13/2022 2:[address] 08/13/22 14:[address] DOSE: HISTORY: syncope, fall TECHNIQUE: Multiaxial CT images of the head were performed without the use of intravenous contrast. Automated exposure control was utilized for this study. A dose lowering technique was utilized adhering to the principles of ALARA. Comparison: Head CT 08/01/2022. Findings: The paranasal sinuses and mastoid air cells are clear. The calvarium and skull base are intact. The ventricles and sulci are within normal limits. There is no mass, hematoma, midline shift, or acute infarct. Impression: No acute intracranial abnormality. ACT 112: Negative or not required by law. Electronically signed by: José Nash M.D. 08/13/2022 3:[address] 08/13/22 14:[address] DOSE: 911.34 mGy.cm HISTORY: etoh, fall TECHNIQUE: Multiaxial CT images of the cervical spine were performed and reformatted in the sagittal and coronal plane without the use of contrast. A dose lowering technique was utilized adhering to the principles of ALARA. COMPARISON: Cervical spine CT 08/01/2022. FINDINGS: No fractures. No subluxation. Prevertebral soft tissues and the C1-C2 interval are intact. No pneumothorax. Moderate to severe degenerative disc disease at C5-C6, unchanged. IMPRESSION: No fractures within the cervical spine. ACT 112: Negative or not required by law. Electronically signed by: José Nash M.D. 08/13/2022 3:41 PM Medications Administered Current Inpatient Medications Acetaminophen (Acetaminophen 325 Mg Tab) 650 mg PO Q4H PRN PRN Reason: Pain or Fever Stop: 09/12/22 18:00 Apixaban (Apixaban 5 Mg Tablet) 5 mg PO BID [facility] Stop: 09/12/22 20:59 Last Admin: 08/14/22 08:36 Dose: 5 mg Bupropion HCl (Bupropion Sr 100 Mg Tabcr) 100 mg PO DAILY [facility] Stop: 08/18/22 08:00 Last Admin: 08/14/22 08:37 Dose: Not Given Chlordiazepoxide HCl (Chlordiazepoxide Hcl 25 Mg Cap) 50 mg PO Q6H [facility]; Taper Stop: 08/16/22 19:44 Last Admin: 08/14/22 08:33 Dose: 50 mg Chlordiazepoxide HCl (Chlordiazepoxide Hcl 10 Mg Cap) 10 mg PO Q12H [facility] Stop: 08/17/22 18:01 Folic Acid (Folic Acid 1 Mg Tab) 1 mg PO QAM [facility] Stop: 09/13/22 08:59 Last Admin: 08/14/22 08:38 Dose: 1 mg Gabapentin (Gabapentin 300 Mg Cap) 300 mg PO TID PRN PRN Reason: Anxiety Stop: 09/13/22 13:59 Lactated Ringer's (Lr) 1,000 mls @ 100 mls/hr IV .Q10H [facility] Stop: 08/14/22 19:14 Last Admin: 08/14/22 11:40 Dose: 100 mls/hr Lorazepam (Lorazepam 2 Mg/1 Ml Vial) 2 mg IV Q2H PRN PRN Reason: Alcohol Withdrawal Stop: 09/12/22 18:41 Last Admin: 08/14/22 11:40 Dose: 2 mg Magnesium Oxide (Magnesium Oxide 400 Mg Tab) 400 mg PO TID [facility] Stop: 08/15/22 21:01 Last Admin: 08/14/22 08:38 Dose: 400 mg Ondansetron HCl (Ondansetron Inj 2 Mg/Ml 2 Ml Vial) 4 mg IV Q6H PRN PRN Reason: Nausea Stop: 09/12/22 18:00 Polyethylene Glycol (Polyethylene (Miralax) 17 Gm Pack) 17 gm PO DAILY PRN PRN Reason: Constipation Stop: 09/12/22 18:00 Thiamine HCl (Thiamine Hcl 100 Mg Tab) 100 mg PO QAM [facility] Stop: 09/13/22 08:59 Last Admin: 08/14/22 08:39 Dose: 100 mg (1) Alcohol withdrawal Complication of substance-induced condition: with delirium Qualified Code(s): F10.931 - Alcohol use, unspecified with withdrawal delirium
[2022-08-15] MEDS: chlordiazePOXIDE HCl 25 MG CAP PO SCH ×3 (05:43→21:12)
[2022-08-15 06:36] LABS: Hematocrit (blood only) 29.4 % (34.1-44.9); Hemoglobin 9.6 g/dl (12.0-16.0); Mean Corpuscular Hemoglobin 25.7 pg (25.0-34.0); Mean Corpuscular Hgb Conc 32.7 g/dL (32.0-36.0); Mean Corpuscular Volume 78.6 fL (80.0-100.0); Mean Platelet Volume 9.4 fL (9.4-12.3); Platelet Count 210 K/uL (130-400); RDW Coefficient of Variation 20.8 % (11.5-14.5); RDW Standard Deviation 58.9 fL (36.4-46.3); Red Blood Count 3.74 M/uL (3.93-5.22); White Blood Count 4.43 K/ul (4.8-10.8)
[2022-08-15 07:38] LABS: Total Protein 6.4 gm/dl (6.0-8.3)
[2022-08-15 07:39] LABS: Albumin Globulin Ratio 1.2 (0.9-2); Albumin Level 3.5 gm/dl (3.4-5.0); BUN Creatinine Ratio 9.1 (10-20); Calcium 7.8 mg/dl (8.5-10.1); Creatinine Clr Calc Pharmacy 136.2 ml/min; Est GFR (African American) 138.9 ml/min; Est GFR (Non-African American) 119.8 ml/min; Globulin 2.9 gm/dl (2.5-4.0); Magnesium 1.7 mg/dl (1.7-2.4); Phosphorus 2.7 mg/dl (2.5-4.9)
[2022-08-15] MEDS: THIAMINE HCL 100 MG TAB PO SCH (08:05)
[2022-08-15] MEDS: APIXABAN 5 MG TABLET PO SCH ×2 (08:05→21:12)
[2022-08-15] MEDS: FOLIC ACID 1 MG TAB PO SCH (08:05)
[2022-08-15] MEDS: MAGNESIUM OXIDE 400 MG TAB PO SCH ×3 (08:05→21:12)
[2022-08-15] MEDS: LORazepam 2 MG/1 ML VIAL IV PRN ×3 (08:11→23:35)
[2022-08-15] MEDS ORDERED: FAMOTIDINE 20 MG in SYRINGE 3 ML IV ONE (09:57)
--- NOTE | 2022-08-15 12:29 | Hospitalist Progress Note ---
Date of Service August 15, 2022 Assessment & Plan (1) Alcohol withdrawal: Plan: - multiple presentations for alcohol intoxication and withdrawal - initially intoxicated but started withdrawing in the ED - tremulous, agitated, tachycardic - given 2mg IV Ativan with minimal response - given IV phenobarbital in ED - started on librium taper for withdrawal - IV Ativan PRN for withdrawal - IVF, encourage po intake - folic acid, thiamine - psych consulted for alcohol use disorder - recommending gabapentin 300mg TID prn for anxiety between Ativan doses - also provided resources for rehab - referrals given by psych - telemetry monitoring for now (2) Anxiety: Plan: - continue home medications - will continue bupropion - likely discontinue clonazepam on discharge as this is dangerous/contraindic ated in alcohol use disorder due to risk of respiratory depression - psych recommends gabapentin prn for anxiety (3) History of pulmonary embolism: Plan: - recently had PE diagnosed - diagnosed with PE in 05/2022 - continue Eliquis for now - follow up outpatient to complete 3 month course Plan DVT ppx: Eliquis Code Status: Full Code Dispo: telemetry Carlos Vo MD [facility] Medicine Admission and Anticipated Discharge Date Admission Date: August 13, 2022 Subjective Patient with alcohol use disorder, anxiety presented with alcohol intoxication and then went into alcohol withdrawal in ED and admitted for the same. Started on Librium taper with prn Ativan IV. Psych consulted and resources given. Patient reports still feeling like she is withdrawing and fatigued. Complains of reflux pain and chest pain. Denies shortness of breath, n/v/d, abdominal pain but some mild cramping in lower abdomen from her menses. Review of Systems Review of Systems: All systems reviewed & are unremarkable except as noted in Subjective Physical Exam Physical Exam: General- oriented x 3, not in distress, speaks in sentences with no effort or accessory muscle use, anxious appearing Eyes- anicteric Neck- no JVD Lungs- clear breath sounds bilaterally, no rales/wheezes Heart- tachycardia, regular rhythm; no murmurs Abdomen- normal bowel sounds, nondistended, soft, mildly tender in lower abdomen Extremities- no pretibial edema, no calf tenderness Neuro- alert, oriented x 3; no gross focal neurologic deficits. Mildly tremulous with very mild tongue fasiculations Skin- warm & dry Results & Data Results & Data ([facility]) Vital Signs (Past 12 Hours) Vital Signs Temp Pulse Pulse Resp BP Pulse Ox O2 Del Method 08/15/22 12:00 36.7 C 95 H 15 117/85 93 Room Air 08/15/22 07:43 36.8 C 95 H 16 114/78 97 Room Air 08/15/22 06:26 116 H 08/15/22 03:14 37.0 C 16 119/79 97 Room Air Diagnostic Findings Laboratory Results WBC 4.43 K/ul (4.8-10.8) L 08/15/22 05:53 RBC 3.74 M/uL (3.93-5.22) L 08/15/22 05:53 Hgb 9.6 g/dl (12.0-16.0) L 08/15/22 05:53 Hct 29.4 % (34.1-44.9) L 08/15/22 05:53 MCV 78.6 fL (80.0-100.0) L 08/15/22 05:53 MCH 25.7 pg (25.0-34.0) 08/15/22 05:53 MCHC 32.7 g/dL (32.0-36.0) 08/15/22 05:53 RDW Std Deviation 58.9 fL (36.4-46.3) H 08/15/22 05:53 RDW Coeff of Chai 20.8 % (11.5-14.5) H 08/15/22 05:53 Plt Count 210 K/uL (130-400) 08/15/22 05:53 MPV 9.4 fL (9.4-12.3) 08/15/22 05:53 Immature Gran % (Auto) 0.4 % 08/13/22 12:58 Neut % (Auto) 66.7 % 08/13/22 12:58 Lymph % (Auto) 26.2 % 08/13/22 12:58 [place] % (Auto) 6.0 % 08/13/22 12:58 Eos % (Auto) 0.2 % 08/13/22 12:58 Baso % (Auto) 0.5 % 08/13/22 12:58 Neut # (Auto) 3.64 K/uL (1.4-6.5) 08/13/22 12:58 Lymph # (Auto) 1.43 K/uL (1.2-3.4) 08/13/22 12:58 [place] # (Auto) 0.33 K/uL (0.24-0.82) 08/13/22 12:58 Eos # (Auto) 0.01 K/uL (0-0.50) 08/13/22 12:58 Baso # (Auto) 0.03 K/uL (0-0.2) 08/13/22 12:58 Immature Gran # (Auto) 0.02 K/uL (0.00-0.02) 08/13/22 12:58 Anisocytosis Present 08/13/22 12:58 PT 10.4 Seconds (9.0-12.0) 08/14/22 05:23 INR 1.0 (0.9-1.1) 08/14/22 05:23 Sodium 135 mmol/L (136-145) L 08/15/22 05:53 Potassium 3.0 mmol/L (3.5-5.1) L 08/15/22 05:53 Chloride 104 mmol/L (98-107) 08/15/22 05:53 Carbon Dioxide 23 mmol/L (21-32) 08/15/22 05:53 Anion Gap 8 (3-11) 08/15/22 05:53 BUN 5 mg/dl (6-23) L 08/15/22 05:53 Creatinine 0.55 mg/dl (0.6-1.2) L 08/15/22 05:53 Est Cr Clr Drug Dosing 136.2 ml/min 08/15/22 05:53 Est GFR ( Amer) 138.9 ml/min 08/15/22 05:53 Est GFR (Non-Af Amer) 119.8 ml/min 08/15/22 05:53 BUN/Creatinine Ratio 9.1 (10-20) L 08/15/22 05:53 Glucose 79 mg/dl (70-99(Fasting)) 08/15/22 05:53 Calcium 7.8 mg/dl (8.5-10.1) L 08/15/22 05:53 Phosphorus 2.7 mg/dl (2.5-4.9) 08/15/22 05:53 Magnesium 1.7 mg/dl (1.7-2.4) 08/15/22 05:53 Total Bilirubin 1.0 mg/dl (0.2-1.0) 08/15/22 05:53 AST 29 U/L (13-39) 08/15/22 05:53 ALT 23 U/L (7-52) 08/15/22 05:53 Alkaline Phosphatase 59 U/L (34-104) 08/15/22 05:53 Troponin I High Sens 2.3 pg/ml (0-14) 08/15/22 05:53 Total Protein 6.4 gm/dl (6.0-8.3) 08/15/22 05:53 Albumin 3.5 gm/dl (3.4-5.0) 08/15/22 05:53 Globulin 2.9 gm/dl (2.5-4.0) 08/15/22 05:53 Albumin/Globulin Ratio 1.2 (0.9-2) 08/15/22 05:53 Lipase 12 U/L (11-82) 08/13/22 12:58 HCG, Qual Negative (Negative) 08/13/22 12:58 Ethyl Alcohol mg/dL 500.1 mg/dl (<10.0) H 08/13/22 14:01 SARS-CoV-2 (PCR) NEGATIVE (Negative) 08/13/22 14:25 Influenza Type A (PCR) Negative (Neg) 08/13/22 14:25 Influenza Type B (PCR) Negative (Neg) 08/13/22 14:25 RSV (RT-PCR) Negative (Neg) 08/13/22 14:25 Impressions Femur X-Ray 08/13/22 14:09 LEFT FEMUR 4 VIEWS HISTORY: Left femur pain, contusion COMPARISON: None. FINDINGS: There is no fracture or dislocation. Soft tissues are unremarkable. No radiopaque foreign bodies. IMPRESSION: No fractures. ACT 112: Negative or not required by law. Electronically signed by: José Nash M.D. 08/13/2022 2:[address] 08/13/22 14:[address] DOSE: HISTORY: syncope, fall TECHNIQUE: Multiaxial CT images of the head were performed without the use of intravenous contrast. Automated exposure control was utilized for this study. A dose lowering technique was utilized adhering to the principles of ALARA. Comparison: Head CT 08/01/2022. Findings: The paranasal sinuses and mastoid air cells are clear. The calvarium and skull base are intact. The ventricles and sulci are within normal limits. There is no mass, hematoma, midline shift, or acute infarct. Impression: No acute intracranial abnormality. ACT 112: Negative or not required by law. Electronically signed by: José Nash M.D. 08/13/2022 3:[address] 08/13/22 14:[address] DOSE: 911.34 mGy.cm HISTORY: etoh, fall TECHNIQUE: Multiaxial CT images of the cervical spine were performed and reformatted in the sagittal and coronal plane without the use of contrast. A dose lowering technique was utilized adhering to the principles of ALARA. COMPARISON: Cervical spine CT 08/01/2022. FINDINGS: No fractures. No subluxation. Prevertebral soft tissues and the C1-C2 interval are intact. No pneumothorax. Moderate to severe degenerative disc disease at C5-C6, unchanged. IMPRESSION: No fractures within the cervical spine. ACT 112: Negative or not required by law. Electronically signed by: José Nash M.D. 08/13/2022 3:41 PM Medications Administered Current Inpatient Medications Acetaminophen (Acetaminophen 325 Mg Tab) 650 mg PO Q4H PRN PRN Reason: Pain or Fever Stop: 09/12/22 18:00 Apixaban (Apixaban 5 Mg Tablet) 5 mg PO BID [facility] Stop: 09/12/22 20:59 Last Admin: 08/15/22 08:05 Dose: 5 mg Bupropion HCl (Bupropion Sr 100 Mg Tabcr) 100 mg PO DAILY GAURAV Stop: 08/18/22 08:00 Last Admin: 08/14/22 08:37 Dose: Not Given Chlordiazepoxide HCl (Chlordiazepoxide Hcl 25 Mg Cap) 50 mg PO Q8H GAURAV; Taper Stop: 08/16/22 19:44 Last Admin: 08/15/22 12:08 Dose: 50 mg Chlordiazepoxide HCl (Chlordiazepoxide Hcl 10 Mg Cap) 10 mg PO Q12H [facility]AV Stop: 08/17/22 18:01 Folic Acid (Folic Acid 1 Mg Tab) 1 mg PO QAM [facility] Stop: 09/13/22 08:59 Last Admin: 08/15/22 08:05 Dose: 1 mg Gabapentin (Gabapentin 300 Mg Cap) 300 mg PO TID PRN PRN Reason: Anxiety Stop: 09/13/22 13:59 Lorazepam (Lorazepam 2 Mg/1 Ml Vial) 2 mg IV Q2H PRN PRN Reason: Alcohol Withdrawal Stop: 09/12/22 18:41 Last Admin: 08/15/22 08:11 Dose: 2 mg Magnesium Oxide (Magnesium Oxide 400 Mg Tab) 400 mg PO TID [facility] Stop: 08/15/22 21:01 Last Admin: 08/15/22 08:05 Dose: 400 mg Ondansetron HCl (Ondansetron Inj 2 Mg/Ml 2 Ml Vial) 4 mg IV Q6H PRN PRN Reason: Nausea Stop: 09/12/22 18:00 Phenazopyridine HCl (Phenazopyridine Hcl 100 Mg Tab) 100 mg PO TID PRN PRN Reason: urinarysypmtoms Stop: 09/14/22 10:47 Polyethylene Glycol (Polyethylene (Miralax) 17 Gm Pack) 17 gm PO DAILY PRN PRN Reason: Constipation Stop: 09/12/22 18:00 Thiamine HCl (Thiamine Hcl 100 Mg Tab) 100 mg PO QAM [facility] Stop: 09/13/22 08:59 Last Admin: 08/15/22 08:05 Dose: 100 mg (1) Alcohol withdrawal Complication of substance-induced condition: with delirium Qualified Code(s): F10.931 - Alcohol use, unspecified with withdrawal delirium
[2022-08-15] MEDS ORDERED: POTASSIUM CHLORIDE CRTAB 20 MEQ TABCR PO STA (15:13)
--- NOTE | 2022-08-15 17:12 | Electrocardiogram Report ---
Test Reason : Blood Pressure : / mmHG Vent. Rate : 099 BPM Atrial Rate : 099 BPM P-R Int : 156 ms QRS Dur : 072 ms QT Int : 370 ms P-R-T Axes : 046 017 028 degrees QTc Int : 474 ms Normal sinus rhythm Poor R wave progression, consider anterior [place] vs. lead placement vs. LVH Abnormal ECG When compared with ECG of 30-JUN-2022 16:09, T wave inversion now evident in Anterior leads Confirmed by Isaac Kincaid ([id number]) on 08/15/2022 5:12:03 PM Referred By: REFERRED SELF Confirmed By:Shawn Kincaid
[2022-08-15] MEDS ORDERED: POTASSIUM CHLORIDE CRTAB 20 MEQ TABCR PO ONE (18:00)
[2022-08-15] MEDS ORDERED: MAGNESIUM OXIDE 400 MG TAB PO SCH (21:00)
[2022-08-15] MEDS: ONDANSETRON INJ 2 MG/ML 2 ML VIAL IV PRN (23:35)
[2022-08-16] MEDS: GABAPENTIN 300 MG CAP PO PRN ×2 (00:50→07:54)
[2022-08-16] MEDS: PHENAZOPYRIDINE HCL 100 MG TAB PO PRN ×2 (00:51→07:54)
[2022-08-16] MEDS: chlordiazePOXIDE HCl 25 MG CAP PO SCH ×2 (04:22→12:53)
[2022-08-16 07:00] LABS: BUN Creatinine Ratio 6.7 (10-20); Calcium 8.2 mg/dl (8.5-10.1); Creatinine Clr Calc Pharmacy 108.4 ml/min; Est GFR (Non-African American) 101.8 ml/min; Magnesium 1.9 mg/dl (1.7-2.4); Phosphorus 2.7 mg/dl (2.5-4.9); Potassium 3.6 mmol/L (3.5-5.1)
[2022-08-16] MEDS: FOLIC ACID 1 MG TAB PO SCH (07:54)
[2022-08-16] MEDS: THIAMINE HCL 100 MG TAB PO SCH (07:54)
[2022-08-16] MEDS: APIXABAN 5 MG TABLET PO SCH ×2 (07:54→20:20)
--- NOTE | 2022-08-16 16:55 | Hospitalist Progress Note ---
Date of Service August 16, 2022 Assessment & Plan (1) Alcohol withdrawal: Plan: per Dr. Howard's notes with addendum: - multiple presentations for alcohol intoxication and withdrawal - initially intoxicated but started withdrawing in the ED - tremulous, agitated, tachycardic - given 2mg IV Ativan with minimal response - given IV phenobarbital in ED - started on librium taper for withdrawal - IV Ativan PRN for withdrawal - IVF, encourage po intake - folic acid, thiamine - psych consulted for alcohol use disorder - recommending gabapentin 300mg TID prn for anxiety between Ativan doses - also provided resources for rehab - referrals given by psych - telemetry monitoring for now 08/16 SUSI score this morning 5 stable overall this afternoon continue Librium taper will check Naltrexone PO insurance coverage (2) Anxiety: Plan: - continue home medications - will continue bupropion - likely discontinue clonazepam on discharge as this is dangerous/contraindicated in alcohol use disorder due to risk of respiratory depression - psych recommends gabapentin prn for anxiety (3) History of pulmonary embolism: Plan: - recently had PE diagnosed - diagnosed with PE in 05/2022 - continue Eliquis for now - follow up outpatient to complete 3 month course Plan DVT ppx: Eliquis Code Status: Full Code Dispo: anticipate d/c home tomorrow patient declines inpatient alcohol rehab Admission and Anticipated Discharge Date Admission Date: August 13, 2022 Subjective ff up for alcohol withdrawal, etc seen resting in bed, comfortable states she feels fine overall denies tremors, but admits to anxiety no confusion, hallucinations, sweating has intermittent left sided chest discomfort- burning no nausea, melena/hematochezia no other symptoms states depression is ok, no suicidal ideations Review of Systems Review of Systems: all noted and negative except for above Physical Exam Physical Exam: General- oriented x 3, not in distress, speaks in sentences with no effort or accessory muscle use Eyes- anicteric Neck- no JVD Lungs- clear breath sounds bilaterally, no rales/wheezes Heart- normal rate, regular rhythm; no murmurs Abdomen- normal bowel sounds, nondistended, soft, nontender Extremities- no pretibial edema, no calf tenderness Neuro- alert, oriented x 3; no gross focal neurologic deficits Skin- warm & dry Results & Data Results & Data ([facility]) Vital Signs (Past 12 Hours) Vital Signs Temp Pulse Resp BP Pulse Ox O2 Del Method 08/16/22 11:23 36.3 C L 84 18 102/70 97 Room Air 08/16/22 07:45 36.4 C L 115 H 18 117/82 97 Room Air all noted and reviewed including below (1) Alcohol withdrawal Complication of substance-induced condition: with delirium Qualified Code(s): F10.931 - Alcohol use, unspecified with withdrawal delirium
[2022-08-16] MEDS: LORazepam 2 MG/1 ML VIAL IV PRN (17:15)
[2022-08-16] MEDS: PANTOprazole 40 MG TAB PO SCH (17:39)
[2022-08-17] MEDS: LORazepam 2 MG/1 ML VIAL IV PRN (00:10)
[2022-08-17] MEDS: ONDANSETRON INJ 2 MG/ML 2 ML VIAL IV PRN (00:10)
[2022-08-17] MEDS: APIXABAN 5 MG TABLET PO SCH (08:46)
[2022-08-17] MEDS: PANTOprazole 40 MG TAB PO SCH (08:47)
[2022-08-17] MEDS: FOLIC ACID 1 MG TAB PO SCH (08:47)
[2022-08-17] MEDS: THIAMINE HCL 100 MG TAB PO SCH (08:47)
--- NOTE | 2022-08-17 15:25 | Hospitalist Progress Note ---
Date of Service August 17, 2022 Assessment & Plan (1) Alcohol withdrawal: Plan: per Dr. Howard's notes with addendum: - multiple presentations for alcohol intoxication and withdrawal - initially intoxicated but started withdrawing in the ED - tremulous, agitated, tachycardic - given 2mg IV Ativan with minimal response - given IV phenobarbital in ED - started on librium taper for withdrawal - IV Ativan PRN for withdrawal - IVF, encourage po intake - folic acid, thiamine - psych consulted for alcohol use disorder - recommending gabapentin 300mg TID prn for anxiety between Ativan doses - also provided resources for rehab - referrals given by psych - telemetry monitoring for now 08/16 SUSI score this morning 5 stable overall this afternoon continue Librium taper will check Naltrexone PO insurance coverage 08/17 doing well will finish Librium protocol this afternoon discharge plan: resume usual Welbutrin tomorrow Naltrexone 25 mg p.o. daily Discontinue Klonopin Instead use gabapentin 300 mg 3 times daily as needed for anxiety (2) Anxiety: Plan: - continue home medications - will continue bupropion - likely discontinue clonazepam on discharge as this is dangerous/contraindicated in alcohol use disorder due to risk of respiratory depression - psych recommends gabapentin prn for anxiety (3) History of pulmonary embolism: Plan: - recently had PE diagnosed - diagnosed with PE in 05/2022 - continue Eliquis for now - follow up outpatient to complete 3 month course Plan DVT ppx: Eliquis Code Status: Full Code Dispo: Discharge to home today patient declines inpatient alcohol rehab Follow-up with primary care physician next week Follow-up with outpatient psych provider, alcohol cessation program plan of care discussed with patient in detail and at length all questions answered Patient is understanding, agreeable, comfortable with the plan of care Admission and Anticipated Discharge Date Admission Date: August 13, 2022 Subjective ff up for alcohol withdrawal, etc seen resting in bed, comfortable in good spirits states she feels better overall denies tremors, anxiety, sweats, confusion, etc no other symptoms states she is ready and would like to be discharged today Review of Systems Review of Systems: all noted and negative except for above Physical Exam Physical Exam: General- oriented x 3, not in distress, speaks in sentences with no effort or accessory muscle use Eyes- anicteric Neck- no JVD Lungs- clear BS bilaterally, no rales/wheezes Heart- normal rate, regular rhythm; no murmurs Abdomen- normal bowel sounds, nondistended, soft, no tenderness Extremities- no pretibial edema, no calf tenderness Neuro- alert, oriented x 3; no gross focal neurologic deficits Skin- warm & dry Results & Data Results & Data ([facility]) Vital Signs (Past 12 Hours) Vital Signs Temp Pulse Resp BP Pulse Ox O2 Del Method 08/17/22 12:26 36.6 C 84 16 101/69 95 Room Air 08/17/22 07:24 36.4 C L 81 16 96/62 L 96 Room Air 08/17/22 04:00 36.4 C L 86 12 101/71 Room Air all noted and reviewed including below (1) Alcohol withdrawal Complication of substance-induced condition: with delirium Qualified Code(s): F10.931 - Alcohol use, unspecified with withdrawal delirium
--- NOTE | 2022-08-17 18:10 | Discharge Summary ---
Discharge Summary Date of Service August 17, 2022 Notes For Next Care Provider Please re-evaluate for driving fitness. Medication Changes From Visit Naltrexone 25 mg p.o. daily for alcohol cessation Gabapentin 300 mg p.o. 3 times a day as needed for anxiety Omeprazole 20 mg p.o. daily for possible gastritis or peptic ulcer disease Discontinue Klonopin Admission HPI Per Admitting Provider The patient is a 36 year old woman with pmh alcohol use disorder, anxiety who presents after being found by a friend she was staying with in alcohol intoxication. While in the ED, she was found to start being in alcohol withdrawal. Patient history was inconsistent and somewhat evasive at times. Admitted to drinking last night but was not sure of how much, friend in room reported about 1/2 handle of liquor. Patient denies drinking every day and would not answer how often she does drink. She has multiple presentations and admissions for alcohol intoxication and withdrawal. She denies ever having seizure from withdrawal. Denies other symptoms of chest pain, shortness of breath, n/v/d, abdominal pain, dysuria, cough. She denies any other drug use. She denies current SI or HI. Endorsing anxiety and feeling "afraid" but could not further describe what she was fearing at that time. Patient has a history of anxiety but has reportedly not been taking her bupropion and had "run out of" her clonazepam. However, her friend who brought her reports that she took it as early as last night, prior to admission. In the ED, vitals were significant for HR 100s, BP 100s/70s, afebrile, satting well. Labs were significant for BAL 500, HCO3- 19. AG 19, AST 46. Imaging was unremarkable. he was given IV Ativan with minimal response and IV banana bag, and admitted to medicine. Admission Exam Per Admitting Provider General- oriented x 3, not in distress, speaks in sentences with no effort or accessory muscle use, anxious appearing Eyes- anicteric Neck- no JVD Lungs- clear breath sounds bilaterally, no rales/wheezes Heart- tachycardia, regular rhythm; no murmurs Abdomen- normal bowel sounds, nondistended, soft, mildly tender in lower abdomen Extremities- no pretibial edema, no calf tenderness Neuro- alert, oriented x 3; no gross focal neurologic deficits. Mildly tremulous with very mild tongue fasiculations Skin- warm & dry Principal Dx & Hospital Course #1 = Principal Diagnosis (1) Alcohol withdrawal: (2) Anxiety: (3) History of pulmonary embolism: Plan (1) Alcohol withdrawal: Plan: per Dr. Howard's notes with addendum: - multiple presentations for alcohol intoxication and withdrawal - initially intoxicated but started withdrawing in the ED - tremulous, agitated, tachycardic - given 2mg IV Ativan with minimal response - given IV phenobarbital in ED - started on librium taper for withdrawal - IV Ativan PRN for withdrawal - IVF, encourage po intake - folic acid, thiamine - psych consulted for alcohol use disorder - recommending gabapentin 300mg TID prn for anxiety between Ativan doses - also provided resources for rehab - referrals given by psych - telemetry monitoring for now 08/16 SUSI score this morning 5 stable overall this afternoon continue Librium taper will check Naltrexone PO insurance coverage 08/17 doing well will finish Librium protocol this afternoon discharge plan: resume usual Welbutrin tomorrow Naltrexone 25 mg p.o. daily Discontinue Klonopin Instead use gabapentin 300 mg 3 times daily as needed for anxiety (2) Anxiety: Plan: - continue home medications - will continue bupropion - likely discontinue clonazepam on discharge as this is dangerous/contraindicated in alcohol use disorder due to risk of respiratory depression - psych recommends gabapentin prn for anxiety (3) History of pulmonary embolism: Plan: - recently had PE diagnosed - diagnosed with PE in 05/2022 - continue Eliquis for now - follow up outpatient to complete 3 month course Plan DVT ppx: Eliquis Code Status: Full Code Dispo: Discharge to home today patient declines inpatient alcohol rehab Follow-up with primary care physician next week Follow-up with outpatient psych provider, alcohol cessation program plan of care discussed with patient in detail and at length all questions answered Patient is understanding, agreeable, comfortable with the plan of care Discharge Exam General- oriented x 3, not in distress, speaks in sentences with no effort or accessory muscle use Eyes- anicteric Neck- no JVD Lungs- clear BS bilaterally, no rales/wheezes Heart- normal rate, regular rhythm; no murmurs Abdomen- normal bowel sounds, nondistended, soft, no tenderness Extremities- no pretibial edema, no calf tenderness Neuro- alert, oriented x 3; no gross focal neurologic deficits Skin- warm & dry Updated Medication List Medication Instructions Recorded Confirmed Type apixaban 5 mg (74 tabs) tablets in 5 mg PO BID #74 ea 05/25/22 08/14/22 Rx a dose pack (Eliquis) bupropion HCl 100 mg tablet,12 hr 100 mg PO DAILY #30 ea 08/17/22 08/14/22 Rx sustained-release gabapentin 300 mg capsule 300 mg PO TID PRN anxiety #10 caps 08/17/22 Rx naltrexone 50 mg tablet 25 mg PO DAILY 30 days #15 tabs 08/17/22 Rx omeprazole magnesium 20 mg 20 mg PO DAILY #30 tabs 08/17/22 Rx tablet,delayed release (Prilosec OTC) Hospital Stay Data Consultations 08/13/22 18:01 ED Decision to Admit Stat 08/13/22 18:38 Consult Psychiatry Routine Diagnostic Imagining Performed 08/13/22 14:09 CT head/brain wo con Stat 08/13/22 14:10 CT cervical spine wo con Stat Pending Results Patient Have Any Pending Studies at Discharge: No Discharge Instructions Given to Patient (Per Discharging Provider) PLEASE REFER TO YOUR NEW MEDICATION LIST AND FOLLOW INSTRUCTIONS CAREFULLY. YOUR NEW MEDICATIONS INCLUDE: Naltrexone 25 mg p.o. daily for alcohol cessation Gabapentin 300 mg p.o. 3 times a day as needed for anxiety Omeprazole 20 mg p.o. daily for possible gastritis or peptic ulcer disease You may resume your usual Wellbutrin tomorrow August 18, 2022. Please stop taking Klonopin. No alcohol. No smoking. PLEASE CALL YOUR PRIMARY CARE PHYSICIAN OR RETURN TO THE ER IF WITH WORSENING OF SYMPTOMS, INCLUDING Tremors, shaking, sweats, confusion, Worsening of depression or anxiety, etc. FOLLOW UP WITH PRIMARY CARE PHYSICIAN OUTLINED ABOVE. Total Time Total Time Spent Total Time Spent (In Minutes): >30 minutes
== END 2022-08-17 18:47 | disposition home or self-care (01) | DRG 897 ==
LOC: ED 12:34 → SUATTDRO 18:02 → EDINP 18:02 → 2S 20:25
DX: F10.231 Alcohol dependence with withdrawal delirium; Z88.1 Allergy status to other antibiotic agents; F10.229 Alcohol dependence with intoxication, unspecified; Z88.2 Allergy status to sulfonamides; F17.290 Nicotine dependence, other tobacco product, uncomplicated; F17.210 Nicotine dependence, cigarettes, uncomplicated; F41.9 Anxiety disorder, unspecified; U07.0 Vaping-related disorder; Z86.711 Personal history of pulmonary embolism; E87.20 Acidosis, unspecified

== ENCOUNTER 2023-01-02 19:57 | Observation (INO) ==
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
[2023-01-02 21:05] LABS: Alanine Aminotransferase 38 U/L (7-52); Albumin Globulin Ratio 1.3 (0.9-2); Albumin Level 4.3 gm/dl (3.4-5.0); Alkaline Phosphatase 49 U/L (34-104); Anion Gap 13 (3-11); Aspartate Aminotransferase 62 U/L (13-39); BUN Creatinine Ratio 13.1 (10-20); Bilirubin,Total 0.3 mg/dl (0.2-1.0); Blood Urea Nitrogen 11 mg/dl (6-23); Calcium 8.3 mg/dl (8.6-10.3); Carbon Dioxide 26 mmol/L (21-32); Chloride 102 mmol/L (98-107); Est GFR (African American) 102.9 ml/min; Est GFR (Non-African American) 88.8 ml/min; Globulin 3.3 gm/dl (2.5-4.0); Glucose 76 mg/dl (70-99(Fasting)); Potassium 3.7 mmol/L (3.5-5.1); Sodium 141 mmol/L (136-145); Total Protein 7.6 gm/dl (6.0-8.3)
[2023-01-03] MEDS ORDERED: ONDANSETRON INJ 2 MG/ML 2 ML VIAL IV PRN (02:02)
[2023-01-03] MEDS ORDERED: THIAMINE HCL 100 MG, FOLIC ACID 1 MG in SODIUM CHLORIDE 0.9% 1000ML 1,000 ML IV SCH (02:02)
[2023-01-03] MEDS ORDERED: Ativan IV Alcohol Withdrawal--Active Protocol IV PRN (02:02)
[2023-01-03] MEDS ORDERED: LEVALBUTEROL TARTRATE 15 GM HFA.AER.AD INH PRN (02:02)
[2023-01-03] MEDS ORDERED: LORazepam 2 MG/1 ML VIAL IV PRN ×4 (02:02→07:44)
[2023-01-03] MEDS ORDERED: CEROVITE ADV FORMULA TAB PO STA (02:24)
--- NOTE | 2023-01-03 03:23 | History and Physical Report ---
DATE OF ADMISSION: 01/03/2023. CHIEF COMPLAINT: Alcohol intoxication. HISTORY OF PRESENT ILLNESS: A 37-year-old female with history of alcohol abuse, anxiety disorder, who was brought in because of alcohol intoxication. Looks like the patient went to [place] to her friend's place and drank all day alcohol and came home and was very intoxicated and was brought into the hospital and alcohol was 573. Currently sleepy, drowsy, talks in low volume. Says she drank alcohol, but does not quantify how much. Denies any chest pain, denies shortness of breath. No nausea. She says she has some abdominal discomfort. No headache. Afebrile. Could not get much history from the patient currently. She has a history of admissions for alcohol intoxications in the past. ALLERGIES: CIPROFLOXACIN, ALPRAZOLAM, AUGMENTIN, METRONIDAZOLE, AND BACTRIM. PAST MEDICAL HISTORY: As mentioned above. PAST SURGICAL HISTORY: just by D and C. MEDICATIONS: The patient is on benzonatate 100 mg p.o. t.i.d. p.r.n., Wellbutrin SR 100 mg p.o. a.m., clonazepam 0.5 mg p.o. b.i.d. p.r.n. for panic attacks, Xopenex 1 puff inhalation q. 4 hours p.r.n., metoprolol succinate 25 mg p.o. daily, omeprazole 40 mg p.o. daily, Zofran 4 mg q. 8 hours p.r.n., propranolol 20 mg p.o. b.i.d. p.r.n. FAMILY HISTORY: Significant for father's mother had breast cancer; mother has Crohn's disease; father has high cholesterol; mother has hypertension, fibromyalgia; maternal grandmother has diabetes; paternal grandmother has diabetes. SOCIAL HISTORY: Single. Seems she quit smoking in August 2022. Heavy alcohol use. No drug use as per records. REVIEW OF SYSTEMS: Unobtainable at this time. PHYSICAL EXAMINATION: GENERAL: The patient is of moderate build, not in acute distress. VITAL SIGNS: Temperature 36.8, pulse 92, respiratory rate 20, blood pressure 195/68, oxygen 97% on room air. HEENT: Pupils equal, round, and reactive to light. Oral mucosa dry. NECK: No JVD, no neck masses. CARDIOVASCULAR: S1 and S2 heard. Regular rate and rhythm. No murmur, no gallop. RESPIRATORY SYSTEM: Normal AP diameter. No accessory muscle use. No wheezing or crackles. ABDOMEN: Soft, bowel sounds present, nontender, no distention. CENTRAL NERVOUS SYSTEM: Drowsy, answers few simple questions. Moves extremities. EXTREMITIES: No edema, no erythema. LABORATORY DATA: Sodium 141, potassium 3.7, chloride 102, bicarbonate 26, BUN 11, creatinine 0.8, serum glucose 76, calcium 8.3, total bilirubin 0.3, AST 62, ALT 38, alkaline phosphatase 49. Ethyl alcohol 573. SARS-CoV-2 rapid test negative. ASSESSMENT AND PLAN: This is a 37-year-old female who came in for alcohol intoxication. 1. Alcohol intoxication: Blood alcohol level 573. Seems she is on probation. History of alcohol abuse admissions in the past. Will give banana bag. Follow urine drug screen. Will place on gabapentin protocol. Will monitor for now. 2. Anxiety: on Wellbutrin.Consider psychiatry consult. 3. History of pulmonary embolism: Diagnosed in May 2022. No longer on Eliquis. 4. Deep venous thrombosis prophylaxis: Sequential compression devices for now. DISPOSITION: Closely monitor in the [facility]. Expect to discharge home and follow with family doctor. Job ID: [id number] [facility]
[2023-01-03] MEDS: SODIUM CHLORIDE 0.9% 1000ML 1,000 ML IV SCH ×2 (03:42→13:45)
[2023-01-03] MEDS ORDERED: GABAPENTIN 1200MG ALCOHOL WITHDRAWAL LOAD PO ONE (07:00)
[2023-01-03] MEDS ORDERED: GABAPENTIN 600 MG TAB PO ONE (07:30)
[2023-01-03 07:32] LABS: Hematocrit (blood only) 29.4 % (37.0-47.0); Hemoglobin 9.3 g/dl (12.0-16.0); Mean Corpuscular Hemoglobin 25.3 pg (25.0-34.0); Mean Corpuscular Hgb Conc 31.6 g/dL (32.0-36.0); Mean Corpuscular Volume 79.9 fL (80.0-100.0); Mean Platelet Volume 9.1 fL (9.4-12.4); Platelet Count 239 K/uL (130-400); RDW Coefficient of Variation 18.7 % (11.5-14.5); RDW Standard Deviation 54.4 fL (36.4-46.3); Red Blood Count 3.68 M/uL (4.20-5.40)
[2023-01-03 07:46] LABS: BUN Creatinine Ratio 12.9 (10-20); Calcium 7.9 mg/dl (8.6-10.3); Creatinine Clr Calc Pharmacy 116.3 ml/min; Est GFR (African American) 128.3 ml/min; Est GFR (Non-African American) 110.7 ml/min; Magnesium 1.9 mg/dl (1.7-2.4); Potassium 3.8 mmol/L (3.5-5.1)
[2023-01-03 07:59] LABS: Basophils # (auto) 0.02 K/uL (0-0.2); Basophils % (auto) 0.5 %; Eosinophils # (auto) 0.19 K/uL (0-0.50); Eosinophils % (auto) 4.3 %; Lymphocytes # (auto) 2.53 K/uL (1.2-3.4); Lymphocytes % (auto) 57.5 %; Monocytes # (auto) 0.37 K/uL (0.11-0.59); Monocytes % (auto) 8.4 %; Neutrophils # (auto) 1.29 K/uL (1.40-6.50); Neutrophils % (auto) 29.3 %
[2023-01-03] MEDS ORDERED: PANTOprazole 40 MG TAB PO SCH (09:00)
[2023-01-03] MEDS ORDERED: buPROPion SR 100 MG TABCR PO SCH (09:00)
[2023-01-03] MEDS ORDERED: FOLIC ACID 1 MG in SYRINGE 9.8 ML IV SCH (09:00)
[2023-01-03] MEDS ORDERED: THIAMINE HCL 100 MG in SYRINGE 9 ML IV SCH (09:00)
[2023-01-03] MEDS: METOPROLOL SUCC 25MG EXT REL TAB PO SCH ×2 (09:35→13:42)
[2023-01-03] MEDS ORDERED: GABAPENTIN 600 MG TAB PO SCH (14:00)
[2023-01-03] MEDS ORDERED: LORazepam 0.5 MG TAB PO STA (16:02)
[2023-01-03 18:01] LABS: Amphetamines+Metham, Urine Neg (Neg); Barbiturates, Urine Neg (Neg); Benzodiazepine, Urine Neg (Neg); Cocaine, Urine Neg (Neg); MDMA (Ecstacy), Urine Neg (Neg); Methadone, Urine Neg (Neg); Opiate, Urine Neg (Neg); Phencyclidine, Urine Neg (Neg)
[2023-01-04] MEDS ORDERED: GABAPENTIN 600 MG TAB PO SCH (04:00)
[2023-01-05] MEDS ORDERED: GABAPENTIN 600 MG TAB PO SCH (08:00)
[2023-01-06] MEDS ORDERED: GABAPENTIN 600 MG TAB PO SCH (20:00)
== END 2023-01-03 19:50 | disposition home or self-care (01) ==
LOC: ED 19:57 → EDINP 01-03 01:13 → INTOOBSV 01-03 01:13 → SUATTDRO 01-03 01:13 → 2W 01-03 01:54

== ENCOUNTER 2023-04-25 13:06 | Observation (INO) ==
[2023-04-25] MEDS ORDERED: SODIUM CHLORIDE 0.9% 1,000 ML IV ONE ×2 (13:20→19:24)
[2023-04-25] MEDS ORDERED: ONDANSETRON INJ 2 MG/ML 2 ML VIAL IV STA (13:20)
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
[2023-04-25 14:07] LABS: Basophils # (auto) 0.03 K/uL (0.00-0.20); Basophils % (auto) 0.6 %; Eosinophils # (auto) 0.11 K/uL (0.00-0.50); Eosinophils % (auto) 2.2 %; Hemoglobin 10.7 g/dl (12.0-16.0); Immature Granulocytes # (auto) 0.01 K/uL (0.01-0.20); Immature Granulocytes % (auto) 0.2 %; Lymphocytes # (auto) 2.32 K/uL (1.20-3.40); Lymphocytes % (auto) 47.3 %; Mean Corpuscular Hemoglobin 24.4 pg (25.0-34.0); Mean Corpuscular Hgb Conc 32.4 g/dL (32.0-36.0); Mean Corpuscular Volume 75.3 fL (80.0-100.0); Mean Platelet Volume 9.4 fL (9.4-12.4); Monocytes # (auto) 0.39 K/uL (0.11-0.59); Neutrophils # (auto) 2.04 K/uL (1.40-6.50); Neutrophils % (auto) 41.7 %; Platelet Count 305 K/uL (130-400); RDW Coefficient of Variation 18.9 % (11.5-14.5); RDW Standard Deviation 51.5 fL (36.4-46.3); Red Blood Count 4.38 M/uL (4.20-5.40)
[2023-04-25 14:27] LABS: Albumin Level 4.3 gm/dl (3.4-5.0); Bilirubin,Total 0.3 mg/dl (0.2-1.0); Calcium 8.4 mg/dl (8.6-10.3); Potassium 3.4 mmol/L (3.5-5.1)
[2023-04-25 14:31] LABS: Pregnancy Test, Serum Negative (Negative)
[2023-04-25 14:33] LABS: Albumin Globulin Ratio 1.1 (0.9-2); BUN Creatinine Ratio 12.2 (10-20); Creatinine Clr Calc Pharmacy 99.4 ml/min; Est GFR (Non-African American) 91.4 ml/min; Globulin 3.9 gm/dl (2.5-4.0); Total Protein 8.2 gm/dl (6.0-8.3)
[2023-04-25 14:34] LABS: Troponin I High Sensitivity 2.6 pg/ml (0-14)
--- NOTE | 2023-04-25 14:49 | CT Scan Report ---
CT cervical spine wo con CLINICAL HISTORY: AMS TECHNIQUE: Multidetector row helical CT of the cervical spine was performed without administration of intravenous contrast. Coronal and sagittal reformations were obtained. Automated dose lowering techn iques and/or adjustment according to patient size were utilized for this exam. Comparison: Comparison is made to CT cervical spine 03/03/2023 FINDINGS: No acute fractures or subluxations are identified. Degenerative changes are seen in the visualized sp ine. The alignment is normal. Biapical scarring is seen in the lungs. IMPRESSION: Degenerative changes without evidence of acute bony injury. ACT 112: Negative or not required by law. Electronically signed by: Mat Hogue M.D. 04/25/2023 2:48 PM
--- NOTE | 2023-04-25 15:08 | CT Scan Report ---
HEAD CT NONCONTRAST CT DOSE: HISTORY: Altered mental status. TECHNIQUE: Multiaxial CT images of the head were performed without the use of intravenous contrast. A utomated exposure control was utilized for this study. A dose lowering technique was utilized adheri ng to the principles of ALARA. Comparison: Head CT 03/03/2023. Findings: The paranasal sinuses and mastoid air cells are clear. The calvarium and skull base are int act. The ventricles and sulci are within normal limits. There is no mass, hematoma, midline shift, or acute infarct. Impression: No acute intracranial abnormality. ACT 112: Negative or not required by law. Electronically signed by: José Nash M.D. 04/25/2023 3:06 PM
--- NOTE | 2023-04-25 15:14 | XRay Report ---
XR chest 1V portable HISTORY: 37 years-old Female OD acute drug overdose COMPARISON: September 21, 2022 TECHNIQUE: AP view of the chest FINDINGS: Cardiac mediastinal and hilar silhouettes are within normal limits. No pneumothorax, pleural effusion , airspace consolidation or pulmonary edema. Bones appear normal. IMPRESSION: No acute process. ACT 112: Negative or not required by law. The above report was generated using voice recognition software. It may contain grammatical, syntax o r spelling errors. Electronically signed by: Dontae Vyas M.D. 04/25/2023 3:12 PM
[2023-04-25 15:39] LABS: Appearance Urine Clear (Clear); Bilirubin Urine Negative (Negative); Blood Urine Negative (Negative); Color Urine Yellow; Glucose Urine UA Negative (Negative); Ketones Urine Negative (Negative); Leukocyte Esterase Urine Negative (Negative); Nitrite Urine Negative (Negative); Protein Urine Negative (Negative); Specific Gravity Urine 1.006 (1.000-1.030); Urobilinogen Urine Negative (Negative); pH Urine 6.5 (4.5-7.5)
[2023-04-25 16:09] LABS: Amphetamines+Metham, Urine Neg (Neg); Barbiturates, Urine Neg (Neg); Benzodiazepine, Urine Neg (Neg); Cocaine, Urine Neg (Neg); MDMA (Ecstacy), Urine Neg (Neg); Methadone, Urine Neg (Neg); Opiate, Urine Neg (Neg); Phencyclidine, Urine Neg (Neg)
[2023-04-25] MEDS ORDERED: ALUMINUM/MAGNESIUM SUSP 30 ML UDC PO PRN (16:39)
[2023-04-25] MEDS ORDERED: POLYETHYLENE (MIRALAX) 17 GM PACK PO PRN (16:39)
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
[2023-04-25 18:27] LABS: Magnesium 2.1 mg/dl (1.7-2.4); Phosphorus 3.3 mg/dl (2.5-4.9)
[2023-04-25] MEDS ORDERED: clonazePAM 1 MG TAB PO PRN (19:40)
[2023-04-25] MEDS ORDERED: POTASSIUM CHLORIDE / WTR 10 MEQ/100 ML PLCT IV ONE (19:40)
[2023-04-25] MEDS ORDERED: LORazepam 2 MG/1 ML VIAL IV PRN (19:40)
[2023-04-25] MEDS ORDERED: chlordiazePOXIDE ALCOHOL WITHDRAWL 50MG PO STA (19:40)
[2023-04-25] MEDS ORDERED: MULTI-VITAMIN INFUSION 10 ML, THIAMINE HCL 100 MG, FOLIC ACID 1 MG in SODIUM CHLORIDE 0... IV ONE (19:45)
[2023-04-25] MEDS ORDERED: ENOXAPARIN INJ 40 MG/0.4 ML SYR SQ SCH (20:00)
[2023-04-25] MEDS: chlordiazePOXIDE HCl 25 MG CAP PO SCH (20:26)
[2023-04-25] MEDS ORDERED: STAT IV STA (22:39)
[2023-04-25] MEDS ORDERED: CALCIUM GLUCONATE IV ONE (23:15)
[2023-04-25] MEDS ORDERED: DEXTROSE 5% IV ONE (23:15)
[2023-04-25] MEDS ORDERED: GADOBUTROL 65ML VIAL IV ONE (23:36)
--- NOTE | 2023-04-26 00:57 | Magnetic Resonance Report ---
Exam(s): MRI HEAD W/WO Contrast IV Amt: 7.5cc gadavist EXAM: MR Head Without and With Intravenous Contrast CLINICAL HISTORY: Reason for exam: AMS. TECHNIQUE: Magnetic resonance images of the head/brain without and with intravenous contrast in multiple planes. CONTRAST: Patient received 7.5cc gadavist of IV contrast COMPARISON: Comparison made to prior head CT from April 25, 2023. FINDINGS: Brain: Unremarkable. No mass. No hemorrhage. No acute infarct. The flow voids at the base of the brain are intact. No evidence of abnormal enhancement. The dural venous sinuses are patent. Ventricles: Unremarkable. No ventriculomegaly. Bones/joints: Unremarkable. Sinuses: Chronic ethmoid sinusitis. No acute sinusitis. Mastoid air cells: Unremarkable as visualized. No mastoid effusion. Orbits: Unremarkable as visualized. IMPRESSION: Negative MRI of the brain. Electronically signed by: Diana Mckee MD 04/26/23 00:56 AM
[2023-04-26] MEDS: ONDANSETRON INJ 2 MG/ML 2 ML VIAL IV PRN ×2 (01:11→12:29)
[2023-04-26] MEDS: chlordiazePOXIDE HCl 25 MG CAP PO SCH ×3 (02:57→14:32)
[2023-04-26] MEDS ORDERED: PHENAZOPYRIDINE HCL 100 MG TAB PO PRN (06:24)
[2023-04-26] MEDS: buPROPion SR 100 MG TABCR PO SCH ×2 (07:51→07:54)
[2023-04-26 08:20] LABS: Basophils # (auto) 0.03 K/uL (0.00-0.20); Basophils % (auto) 0.6 %; Eosinophils # (auto) 0.12 K/uL (0.00-0.50); Eosinophils % (auto) 2.2 %; Hemoglobin 8.7 g/dl (12.0-16.0); Immature Granulocytes # (auto) 0.02 K/uL (0.01-0.20); Immature Granulocytes % (auto) 0.4 %; Lymphocytes % (auto) 29.5 %; Mean Corpuscular Hemoglobin 24.4 pg (25.0-34.0); Mean Corpuscular Hgb Conc 32.2 g/dL (32.0-36.0); Mean Corpuscular Volume 75.6 fL (80.0-100.0); Mean Platelet Volume 9.2 fL (9.4-12.4); Monocytes # (auto) 0.52 K/uL (0.11-0.59); Monocytes % (auto) 9.6 %; Neutrophils # (auto) 3.13 K/uL (1.40-6.50); Neutrophils % (auto) 57.7 %; Platelet Count 223 K/uL (130-400); RDW Coefficient of Variation 18.8 % (11.5-14.5); RDW Standard Deviation 51.8 fL (36.4-46.3); Red Blood Count 3.57 M/uL (4.20-5.40); White Blood Count 5.42 K/ul (4.8-10.8)
[2023-04-26 08:36] LABS: Albumin Globulin Ratio 1.3 (0.9-2); Albumin Level 3.5 gm/dl (3.4-5.0); BUN Creatinine Ratio 9.1 (10-20); Bilirubin,Total 0.6 mg/dl (0.2-1.0); Calcium 7.1 mg/dl (8.6-10.3); Creatinine Clr Calc Pharmacy 123.5 ml/min; Est GFR (African American) 130.8 ml/min; Est GFR (Non-African American) 112.9 ml/min; Globulin 2.8 gm/dl (2.5-4.0); Potassium 3.7 mmol/L (3.5-5.1); Total Protein 6.3 gm/dl (6.0-8.3)
--- NOTE | 2023-04-26 08:52 | Hospitalist Progress Note ---
Date of Service April 26, 2023 Assessment & Plan (1) Acute encephalopathy: (2) Acute alcohol intoxication: (3) Altered mental status: (4) Depression: (5) History of pulmonary embolism: (6) Anemia: Plan 37yoF with PMhx significant for chronic alcohol use, Hx of unprovoked PE in 2021 noncompliant with anticoagulation, anxiety, depression, GERD admitted with AMS in the setting of alcohol intoxication. AMS/Alcohol intoxication/Anxiety/Depression Per ED report and triage note, pt brought in by family member after being found in the parking lot. Alcohol level of 538.9 in the ED, Head CT with no acute findings, chest xray with no acute findings, urine unremarkable, tox screen negative. Chronic history of alcohol abuse. Pt slurring speech on exam, not oriented. NPO with banana bag AWSS protocol with Librium and Ativan [facility] records note she was following with [facility] with unclear use of Viibryd but definite use of Wellbutrin and Klonopin. Continue Wellbutrin and Klonopin. Consider psychiatry consult while inpatient. Tachycardia Chronic, on metoprolol succinate 25mg daily for treatment EKG with NSR, consider repeat chest CTA with PE protocol to rule out new PE given pt's noncompliance (see below), though less likely Continue home metoprolol Hx of unprovoked PE Noted in EPIC, was placed on Eliquis in 2021 Pt was seen by PCP earlier this year and advised to re-start Eliquis until February 2023. Not currently on anticoagulation Electrolyte derangements Potassium low at 3.4, replenish as needed mag and phos levels pending CODE STATUS: Full code, not discussed with pt. Attempt made to reach contact listed in the chart, unsuccessful. FEN/GI/Diet: Currently NPO until mental status improves, ordered a banana bag, consider continuing IVF if mental status does not improve DVT prophylaxis: Lovenox SQ Dispo: PCU/Tele in anticipation of withdrawal Admission and Anticipated Discharge Date Admission Date: April 25, 2023 Results & Data Results & Data Vital Signs (Past 12 Hours) Vital Signs Pulse Pulse Resp BP BP Pulse Ox O2 Del Method 04/26/23 07:05 93 H 04/25/23 23:55 99 H 17 115/80 99 Room Air 04/25/23 23:06 97 H 04/25/23 23:00 98 H 20 117/78 100 Room Air 04/25/23 21:00 92 H 17 88/61 L 91 Room Air Laboratory Results Short CBC 04/25/23 04/26/23 Range/Units 13:40 07:56 WBC 4.90 5.42 (4.8-10.8) K/ul Hgb 10.7 L 8.7 L (12.0-16.0) g/dl Hct 33.0 L 27.0 L (37.0-47.0) % Plt Count 305 223 (130-400) K/uL BMP 04/25/23 04/26/23 13:40 07:56 Sodium 142 138 Potassium 3.4 L 3.7 Chloride 107 108 H Carbon Dioxide 24 22 BUN 10 6 Creatinine 0.82 0.66 Glucose 114 H 71 Calcium 8.4 L 7.1 L Liver Function 04/25/23 04/26/23 Range/Units 13:40 07:56 Total Bilirubin 0.3 0.6 (0.2-1.0) mg/dl AST 28 23 (13-39) U/L ALT 23 18 (7-52) U/L Alkaline Phosphatase 50 37 (34-104) U/L Albumin 4.3 3.5 (3.4-5.0) gm/dl Urine 04/25/23 Range/Units 14:48 Urine Color Yellow Urine Appearance Clear (Clear) Urine pH 6.5 (4.5-7.5) Ur Specific [place] 1.006 (1.000-1.030) Urine Protein Negative (Negative) Urine Glucose (UA) Negative (Negative) Diagnostic Findings Brain MRI 04/25/23 19:40 Exam(s): MRI HEAD W/WO Contrast IV Amt: 7.5cc gadavist EXAM: MR Head Without and With Intravenous Contrast CLINICAL HISTORY: Reason for exam: AMS. TECHNIQUE: Magnetic resonance images of the head/brain without and with intravenous contrast in multiple planes. CONTRAST: Patient received 7.5cc gadavist of IV contrast COMPARISON: Comparison made to prior head CT from April 25, 2023. FINDINGS: Brain: Unremarkable. No mass. No hemorrhage. No acute infarct. The flow voids at the base of the brain are intact. No evidence of abnormal enhancement. The dural venous sinuses are patent. Ventricles: Unremarkable. No ventriculomegaly. Bones/joints: Unremarkable. Sinuses: Chronic ethmoid sinusitis. No acute sinusitis. Mastoid air cells: Unremarkable as visualized. No mastoid effusion. Orbits: Unremarkable as visualized. IMPRESSION: Negative MRI of the brain. Electronically signed by: Diana Mckee MD 04/26/23 00:56 AM Medications Administered Current Inpatient Medications Al Hydrox/Mg Hydrox/Simethicone (Aluminum/Magnesium Susp 30 Ml Udc) 15 ml PO Q4H PRN PRN Reason: Dyspepsia Stop: 05/25/23 16:38 Bupropion HCl (Bupropion Sr 100 Mg Tabcr) 100 mg PO QAM GAURAV Stop: 05/26/23 08:59 Last Admin: 04/26/23 07:54 Dose: Not Given Chlordiazepoxide HCl (Chlordiazepoxide Hcl 25 Mg Cap) 50 mg PO Q8H GAURAV Stop: 04/27/23 11:01 Chlordiazepoxide HCl (Chlordiazepoxide Hcl 25 Mg Cap) 50 mg PO Q6H GAURAV Stop: 04/26/23 13:41 Last Admin: 04/26/23 07:51 Dose: 50 mg Chlordiazepoxide HCl (Chlordiazepoxide Hcl 25 Mg Cap) 25 mg PO Q8H GAURAV Stop: 04/28/23 11:01 Chlordiazepoxide HCl (Chlordiazepoxide Hcl 10 Mg Cap) 10 mg PO Q12H GAURAV Stop: 04/29/23 11:01 Clonazepam (Clonazepam 1 Mg Tab) 1 mg PO BID PRN PRN Reason: Panic Attack(S) Stop: 05/25/23 19:39 Enoxaparin Sodium (Enoxaparin Inj 40 Mg/0.4 Ml Syr) 40 mg SQ Q24H GAURAV Stop: 05/25/23 19:59 Last Admin: 04/25/23 21:55 Dose: 40 mg Metoprolol Succinate (Metoprolol Succ 25mg Ext Rel Tab) 25 mg PO DAILY GAURAV Stop: 05/26/23 08:59 Last Admin: 04/26/23 07:51 Dose: 25 mg Ondansetron HCl (Ondansetron Inj 2 Mg/Ml 2 Ml Vial) 4 mg IV Q6H PRN PRN Reason: Nausea Stop: 05/25/23 16:38 Last Admin: 04/26/23 01:11 Dose: 4 mg Phenazopyridine HCl (Phenazopyridine Hcl 100 Mg Tab) 100 mg PO TID PRN PRN Reason: Bladder pain Stop: 05/26/23 06:23 Polyethylene Glycol (Polyethylene (Miralax) 17 Gm Pack) 17 gm PO DAILY PRN PRN Reason: Constipation Stop: 05/25/23 16:38
[2023-04-26] MEDS ORDERED: METOPROLOL SUCC 25MG EXT REL TAB PO SCH (09:00)
[2023-04-26 10:00] LABS: Estimated Average Glucose 100 mg/dl; Hemoglobin A1C 5.1 % (4.5-5.6)
--- NOTE | 2023-04-26 15:00 | Discharge Summary ---
Discharge Summary Date of Service April 26, 2023 Notes For Next Care Provider Strict alcohol cessation recommended. Please follow-up with hematology for additional hypercoagulable work-up as needed for unprovoked PE in 2021. Consideration should be given for lifelong anticoagulation given history of unprovoked PE. Patient also has chronic anemia which may also be evaluated by hematology. Medication Changes From Visit Please see medicine reconciliation Admission HPI Per Admitting Provider 37yoF with PMhx significant for chronic alcohol use, Hx of unprovoked PE in 2021 noncompliant with anticoagulation, anxiety, GERD admitted with AMS in the setting of alcohol intoxication. Pt was altered, slurred speech and no family present at bedside. Attempts were made to contact her father listed in the chart as her contact, but those attempts were unsuccessful. History obtained from chart records. Per ED report and triage note, pt brought in by family member after being found in the parking lot after a recent bus trip. Chronic history of alcohol abuse with Hx of anxiety and depression. Per [facility] records, she was following with [facility] earlier this year with unclear use of Viibryd but definite use of Wellbutrin and Klonopin. Hx of chronic tachycardia and anxiety so was started on metoprolol to help with that. Alcohol level of 538.9 in the ED, Head CT with no acute findings, chest xray with no acute findings, urine unremarkable, tox screen negative. Received zofran and fluids in the ED. Principal Dx & Hospital Course #1 = Principal Diagnosis (1) Acute encephalopathy: (2) Acute alcohol intoxication: (3) Altered mental status: (4) Depression: (5) History of pulmonary embolism: (6) Anemia: Plan 37-year-old alcoholic female presents acute change in mental status. She has a history of alcohol intoxication. She had recently returned from [place] via bus and was found to bust up on the ground by family and brought in by family unable to personally provide any history initially. She had signs of trauma on her face so a head CT and C-spine CT were obtained. She was found to have a very elevated alcohol level with a history of alcohol abuse in the past. Given the value of her alcohol level and potential for acute withdrawal she was admitted to the hospitalist team. Brain MRI was obtained and negative. Intravenous calcium was given for replacement. She was found on outpatient record review to have an unprovoked PE historically in 2021. She was placed on Eliquis for this however this was stopped for uncertain reason. She was advised to follow-up with hematology for consideration of additional hypercoagulable work-up as needed with consideration for lifelong anticoagulation. She has previously seen them in the past for anemia which is chronic. Hemoglobin this admission is around 10. She was given a banana bag and followed in alcohol withdrawal protocol without evidence of withdrawal. Mental status returned to baseline and at time of discharge she was mentating and ambulating at baseline and tolerating p.o. She was hemodynamically stable and afebrile with original symptoms completely resolved. She was discharged in stable condition with close primary care follow-up recommended. A strong recommendation for strict alcohol cessation was given. She verbalized understanding with intent to comply. Updated Medication List Medication Instructions Recorded Confirmed Type bupropion HCl 100 mg tablet,12 hr 100 mg PO QAM 01/02/23 04/25/23 History sustained-release (Wellbutrin SR) metoprolol succinate 25 mg 25 mg PO DAILY 01/02/23 04/25/23 History tablet,extended release 24 hr clonazepam 1 mg tablet 1 mg PO BID PRN Panic Attack(S) 02/13/23 04/25/23 History Hospital Stay Data Consultations 04/25/23 15:25 ED Decision to Admit Stat Diagnostic Imagining Performed 04/25/23 13:20 CT cervical spine wo con Stat CT head/brain wo con Stat 04/25/23 19:40 MRI Brain [MR brain wo/w con] Routine Pending Results Patient Have Any Pending Studies at Discharge: No Discharge Instructions Given to Patient (Per Discharging Provider) Strict alcohol cessation recommended. Please followup with PCP in one week. A repeat CBC is recommended to monitor your anemia. Please consider going back on apixaban with your history of unprovoked blood clot in the lung. A referral to hematology is recommended for further investigation into the cause of the bloodwork and definitive blood thinner recommendations. It was a pleasure taking care of you! Please call if you have any questions or problems. You can reach a [facility] hospitalist on duty at [facility] 24 hours a day by calling [phone]. Take care of yourself. Laurence Tim, [facility] Hospitalist Total Time Total Time Spent Total Time Spent (In Minutes): 60
--- NOTE | 2023-04-26 18:07 | Electrocardiogram Report ---
Test Reason : Blood Pressure : / mmHG Vent. Rate : 098 BPM Atrial Rate : 098 BPM P-R Int : 152 ms QRS Dur : 076 ms QT Int : 356 ms P-R-T Axes : 032 009 039 degrees QTc Int : 454 ms Normal sinus rhythm Normal ECG When compared with ECG of 21-SEP-2022 14:42, No significant change was found Confirmed by Isaac Kincaid ([id number]) on 04/26/2023 6:07:35 PM Referred By: Confirmed By:Shawn Kincaid
[2023-04-26] MEDS ORDERED: chlordiazePOXIDE HCl 25 MG CAP PO SCH (19:00)
[2023-04-27] MEDS ORDERED: chlordiazePOXIDE HCl 25 MG CAP PO SCH (19:00)
== END 2023-04-26 15:54 | disposition home or self-care (01) ==
LOC: ED 13:06 → INTOOBSV 16:39 → SUATTDRO 16:39 → EDINP 16:39
DX: Z87.820 Personal history of traumatic brain injury; S00.83XA Contusion of other part of head, initial encounter; Z86.711 Personal history of pulmonary embolism; D64.9 Anemia, unspecified; E87.6 Hypokalemia; F41.9 Anxiety disorder, unspecified; F10.229 Alcohol dependence with intoxication, unspecified; Z87.19 Personal history of other diseases of the digestive system; W19.XXXA Unspecified fall, initial encounter; G93.40 Encephalopathy, unspecified; Y90.8 Blood alcohol level of 240 mg/100 ml or more; F17.290 Nicotine dependence, other tobacco product, uncomplicated; Y92.521 Bus station as the place of occurrence of the external cause; Z79.899 Other long term (current) drug therapy; Z91.199 Patient's noncompliance with other medical treatment and regimen due to unspecified reason; F32.A Depression, unspecified

== ENCOUNTER 2023-06-10 16:43 | Observation (INO) ==
[2023-06-10] MEDS ORDERED: SODIUM CHLORIDE 0.9% 2,000 ML IV ONE (17:50)
[2023-06-10 18:03] LABS: Hematocrit (blood only) 34.3 % (37.0-47.0); Hemoglobin 10.5 g/dl (12.0-16.0); Mean Corpuscular Hemoglobin 23.9 pg (25.0-34.0); Mean Corpuscular Hgb Conc 30.6 g/dL (32.0-36.0); Mean Corpuscular Volume 78.1 fL (80.0-100.0); Mean Platelet Volume 9.2 fL (9.4-12.4); Platelet Count 329 K/uL (130-400); RDW Coefficient of Variation 20.6 % (11.5-14.5); RDW Standard Deviation 58.5 fL (36.4-46.3); Red Blood Count 4.39 M/uL (4.20-5.40); White Blood Count 4.61 K/ul (4.8-10.8)
[2023-06-10 18:20] LABS: Pregnancy Test, Serum Negative (Negative)
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
[2023-06-10 18:29] LABS: Basophils # (auto) 0.03 K/uL (0.00-0.20); Basophils % (auto) 0.7 %; Eosinophils # (auto) 0.22 K/uL (0.00-0.50); Eosinophils % (auto) 4.8 %; Immature Granulocytes # (auto) 0.01 K/uL (0.01-0.20); Immature Granulocytes % (auto) 0.2 %; Lymphocytes # (auto) 2.32 K/uL (1.20-3.40); Lymphocytes % (auto) 50.3 %; Monocytes # (auto) 0.31 K/uL (0.11-0.59); Monocytes % (auto) 6.7 %; Neutrophils # (auto) 1.72 K/uL (1.40-6.50); Neutrophils % (auto) 37.3 %
--- NOTE | 2023-06-10 18:31 | CT Scan Report ---
CT head/brain wo con CLINICAL HISTORY: altered mental status Technique: Contiguous axial CT images of the head were acquired from the base of the skull to the keke adam without intravenous contrast administration. Images were viewed in brain, subdural and [facility]. Automated dose lowering techniques and/or adjustment according to patient size were utilized for this exam. Comparison: Comparison is made to CT head 04/25/2023 Findings: The ventricles, basal cisterns, and cerebral sulci are normal. There is no acute intracranial hemorrh age or evidence of acute territorial infarction. Neither mass effect, shift of the midline structures , nor abnormal extra-axial fluid collections are shown. Imaged portions of the paranasal sinuses and mastoid air cells are clear. The orbits appear normal. There are no acute fractures of the calvaria or scalp swelling. Impression: No acute intracranial hemorrhage, no evidence of acute territorial infarction or other acute intracra nial disease process. ACT 112: Negative or not required by law. Electronically signed by: Mat Hogue M.D. 06/10/2023 6:29 PM
[2023-06-10 18:34] LABS: Albumin Level 4.2 gm/dl (3.4-5.0); Bilirubin,Total 0.3 mg/dl (0.2-1.0); Calcium 8.4 mg/dl (8.6-10.3); Potassium 3.5 mmol/L (3.5-5.1)
[2023-06-10 18:40] LABS: Albumin Globulin Ratio 1.2 (0.9-2); Creatinine Clr Calc Pharmacy 74.9 ml/min; Est GFR (African American) 83.4 ml/min; Est GFR (Non-African American) 71.9 ml/min; Globulin 3.4 gm/dl (2.5-4.0); Total Protein 7.6 gm/dl (6.0-8.3)
[2023-06-10 18:43] LABS: Acetaminophen < 3 ug/ml (10-30); Salicylate < 3.0 mg/dl (3.0-30)
[2023-06-10] MEDS ORDERED: DEXTROSE 50% 50 ML SYRINGE IV ONE ×2 (19:26→23:57)
[2023-06-10 20:43] LABS: Magnesium 2.1 mg/dl (1.7-2.4)
[2023-06-10] MEDS ORDERED: LACTATED RINGER'S 1,000 ML IV STA (21:14)
[2023-06-10] MEDS ORDERED: THIAMINE HCL 100 MG in SYRINGE 9 ML IV STA (21:14)
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
[2023-06-10] MEDS ORDERED: ACETAMINOPHEN 500 MG TAB PO PRN (21:49)
[2023-06-10] MEDS ORDERED: hydrOXYzine HCl 10 MG TAB PO PRN (21:49)
[2023-06-10] MEDS ORDERED: FLUCONAZOLE 50 MG TAB PO STA (21:56)
[2023-06-10] MEDS ORDERED: CLINDAMYCIN PHOS 2% VAG 7 APPLN/40 GM TUBE PV STA (22:16)
[2023-06-10 23:27] LABS: Appearance Urine Clear (Clear); Bilirubin Urine Negative (Negative); Blood Urine Negative (Negative); Color Urine Yellow; Glucose Urine UA Negative (Negative); Ketones Urine Negative (Negative); Leukocyte Esterase Urine Trace (Negative); Nitrite Urine Negative (Negative); Protein Urine Negative (Negative); Specific Gravity Urine 1.006 (1.000-1.030); Urobilinogen Urine Negative (Negative); pH Urine 6.5 (4.5-7.5)
[2023-06-10 23:43] LABS: Amphetamines+Metham, Urine Neg (Neg); Barbiturates, Urine Neg (Neg); Benzodiazepine, Urine Neg (Neg); Cocaine, Urine Neg (Neg); MDMA (Ecstacy), Urine Neg (Neg); Methadone, Urine Neg (Neg); Opiate, Urine Neg (Neg); Phencyclidine, Urine Neg (Neg)
--- NOTE | 2023-06-10 23:50 | Ultrasound Report ---
Exam(s): US VENOUS BILATERAL LOWER EXTREMITIES EXAM: US Duplex Bilateral Lower Extremities Veins CLINICAL HISTORY: Reason for exam: leg pain. TECHNIQUE: Real-time duplex ultrasound scan of the bilateral lower extremity veins integrating B-mode two-dimensional vascular structure, Doppler spectral analysis, color flow Doppler imaging and compression. COMPARISON: No relevant prior studies available. FINDINGS: Right deep veins: Unremarkable. No DVT in the right common femoral, femoral, proximal deep femoral or popliteal veins. The veins demonstrate normal color flow, are normally compressible, with normal phasic flow and/or augmentation response. Right superficial veins: Unremarkable. No thrombus in the visualized right great saphenous vein. Left deep veins: Unremarkable. No DVT in the left common femoral, femoral, proximal deep femoral or popliteal veins. The veins demonstrate normal color flow, are normally compressible, with normal phasic flow and/or augmentation response. Left superficial veins: Unremarkable. No thrombus in the visualized left great saphenous vein. Soft tissues: No acute findings. No popliteal cyst. IMPRESSION: Normal bilateral lower extremity duplex venous ultrasound. Electronically signed by: Nahum Cano MD 06/10/23 23:49 PM
[2023-06-11] MEDS ORDERED: LORazepam 2 MG/1 ML VIAL IV PRN (00:08)
[2023-06-11 00:14] LABS: Bacteria Urine Automated 1+ (Negative); Cast Urine Automated 0 /lpf (0-5); Epithelial Cell Urine Auto 20-30 /lpf (0-5)
[2023-06-11 00:15] LABS: RBC Urine Automated 0-4 /hpf (0-4)
[2023-06-11 01:39] LABS: Partial Thromboplastin Ratio 0.9; Partial Thromboplastin Time 25.1 Seconds (21.0-31.0)
--- NOTE | 2023-06-11 03:13 | Discharge Summary ---
Date of Service June 11, 2023 Discharge Data Consultations 06/10/23 20:14 ED Decision to Admit Stat 06/11/23 01:25 Consult Behavioral Health Liaison Routine Hospital Course (1) Encephalopathy: Multifactorial Alcohol overdose Benzo (Klonopin) misuse hypertension, BP on the lower side currently Bilateral LE pain rule out DVT given hx PE not on anticoagulation due to bleeding concerns/patient compliance issues history of cerebral concussions chronic anemia, hemoglobin at baseline anxiety/mood disorder/ eating disorder as per records ongoing tobacco abuse medical noncompliance as per records. Medical telemetry AWSat risk protocol, DT precautions Hold Klonopin for now given benzo misuse concerns; utilize Vistaril as needed anxiety Psych consult re: substance misuse Benzo misuse should be reported to outpatient prescribers. IVF, appropriate to hold home BP medication for now given hypotension Diflucan 1 course for vaginal yeast infection, topical clindamycin course for possible bacterial vaginosis Nicotine patch as needed DVT prophylaxis per Lovenox subcu Full code (as per adm HP) 06/11/23, 3 AM Made aware by RN of patient request to leave hospital to AGAINST MEDICAL ADVICE. Patient not willing to wait for morning provider. No concerns for self-harm as per evaluation of [facility] liaison. Patient intent on departing hospital AGAINST MEDICAL ADVICE despite explanations provided and citation of risks/possible consequences arising from decision to leave AMA which include recurrent overdose and as an extreme end result. Patient signed AMA form. Outpatient providers will be notified of Klonopin misuse concerns. Total time to prepare this discharge summary was less than 10 minutes. Text document was generated using [employer] voice recognition software. It may contain grammatical or spelling errors. Kindly contact undersigned for clarification of any documentation item in question.
[2023-06-11] MEDS ORDERED: MULTIVITAMIN TAB PO SCH (09:00)
[2023-06-11] MEDS ORDERED: FOLIC ACID 1 MG TAB PO SCH (09:00)
[2023-06-11] MEDS ORDERED: ENOXAPARIN INJ 40 MG/0.4 ML SYR SQ SCH (09:00)
[2023-06-11] MEDS ORDERED: THIAMINE HCL 100 MG TAB PO SCH (09:00)
[2023-06-11] MEDS ORDERED: CLINDAMYCIN PHOS 2% VAG 7 APPLN/40 GM TUBE PV SCH (21:00)
--- NOTE | 2023-06-13 05:33 | Electrocardiogram Report ---
Test Reason : Blood Pressure : / mmHG Vent. Rate : 070 BPM Atrial Rate : 070 BPM P-R Int : 160 ms QRS Dur : 084 ms QT Int : 420 ms P-R-T Axes : 035 039 039 degrees QTc Int : 453 ms Normal sinus rhythm Normal ECG When compared with ECG of 25-APR-2023 13:55, No significant change was found Confirmed by Flip Pinto ([id number]) on 06/13/2023 5:33:26 AM Referred By: REFERRED SELF Confirmed By:Flip Pinto
--- NOTE | 2023-06-13 05:43 | Electrocardiogram Report ---
Test Reason : Blood Pressure : / mmHG Vent. Rate : 073 BPM Atrial Rate : 073 BPM P-R Int : 156 ms QRS Dur : 076 ms QT Int : 414 ms P-R-T Axes : 041 026 035 degrees QTc Int : 456 ms Normal sinus rhythm Normal ECG When compared with ECG of 10-JUN-2023 19:20, No significant change was found Confirmed by Flip Pinto ([id number]) on 06/13/2023 5:43:00 AM Referred By: REFERRED SELF Confirmed By:Flip Pinto
== END 2023-06-11 03:12 | disposition left against medical advice (07) ==
LOC: ED 16:43 → EDINP 21:46 → INTOOBSV 21:46 → EDINP 06-11 00:07